=== PATIENT | female | born 1980 | race African-American/Black ===

== ENCOUNTER 2018-02-13 11:23 | Inpatient (IN) ==
[2018-02-13] MEDS ORDERED: ONDANSETRON 4 MG/2 ML VIAL IV PRN (12:12)
[2018-02-13] MEDS ORDERED: MAGNESIUM SULF RIDER 4 GM in PREMIX 1 EACH IV PRN (12:12)
[2018-02-13] MEDS ORDERED: DEXTROSE 5% NACL 0.45% 1,000 ML IV SCH (12:30)
[2018-02-13] MEDS ORDERED: ALBUTEROL 2.5 MG/3 ML NEB RESP TX PRN (14:06)
[2018-02-13] MEDS: PANTOPRAZOLE 40 MG VIAL IV SCH (14:33)
[2018-02-13 14:48] LABS: Basophils # 0.1 10*3/uL (0.0-0.2); Basophils % 0.3 % (0.0-0.8); Eosinophils # 0.1 10*3/uL (0.0-0.87); Eosinophils % 0.6 % (0.00-10.9); Hematocrit 22.5 VOL% (35.7-47.0); Hemoglobin 7.4 GM/DL (12.0-16.0); Immature Granulocytes % 5.9 %; Immature Granulocytes Absolute 0.86 #; Lymphocytes # 1.4 10*3/uL (1.4-4.0); Lymphocytes % 9.6 % (21.3-54.2); Mean Corpuscular HGB Conc 32.9 GM/DL (32-36); Mean Corpuscular Hemoglobin 34 PG (27-34); Mean Corpuscular Volume 103.2 FL (87-102); Mean Platelet Volume 10.4 FL (9.6-12.0); Monocytes # 1.4 10*3/uL (0.11-0.8); Monocytes % 9.5 % (1.7-12.7); Neutrophils # 10.7 10*3/uL (1.4-7.4); Neutrophils % 74.1 % (38.7-73.9); Platelet Count 113 T/CUMM (130-400); Red Blood Count 2.18 MC/CUMM (3.8-5.5); Red Cell Distribution Width 28.2 % (9.3-17.3); White Blood Count 14.5 T/CUMM (4-12)
[2018-02-13] MEDS: cefTRIAXone 2,000 MG in SYRINGE 1 EACH IV SCH (14:53)
[2018-02-13 15:03] LABS: Ammonia 54 UMOL/L (11-32)
[2018-02-13 15:04] LABS: INR 2.2
[2018-02-13 15:10] LABS: PT Patient Result 22.4 SECS
[2018-02-13 15:15] LABS: Alanine Aminotransferase 54 U/L (13-56); Albumin 1.8 G/DL (3.4-5.0); Alkaline Phosphatase 208 U/L (45-117); Aspartate Amino Transferase 148 U/L (0-37); Blood Urea Nitrogen 3 MG/DL (7-18); Calcium 6.4 MG/DL (8.5-10.1); Glucose 119 MG/DL (74-106); Lactic Acid 3.5 MMOL/L (0.4-2.0); Osmolality,Calculated 270.8 MOS/KG (273-304); Potassium 3.4 MMOL/L (3.5-5.1); Sodium 137 MMOL/L (136-145); Total Protein 7.9 G/DL (6.4-8.3)
[2018-02-13 15:29] LABS: Amorphous Crystals,Urine Occasional /HPF (Few); Apearance,Urine CLOUDY (Clear); Blood, Urine Large mg/dL (Negative); Glucose,Urine (UA) Negative (Negative); Ketones,Urine 5 mg/dL (Negative); Nitrite,Urine Negative (Negative); Protein,Urine 100 MG/DL; RBC,Urine 112 /HPF (0-4); Squamous Epithelial Cell,Urine Occasional /HPF (0-10); Urine Color Amber (Yellow); WBC,Urine 25 /HPF (0-6)
[2018-02-13 15:32] LABS: Bilirubin,Urine Moderate mg/dL (Negative)
[2018-02-13] MEDS ORDERED: OCTREOTIDE 100 MCG/ML SYRINGE IV SCH (16:30)
[2018-02-13 16:40] LABS: Anisocytosis 1+; Band Neutrophils 3 % (0-10); Lymphocytes 14 % (20-55); Segmented Neutrophils 80 % (50-85); Total Cells Counted 100
[2018-02-13 16:41] LABS: Polychromasia Few; Target Cells Few
[2018-02-13 16:42] LABS: Platelet Estimate Decreased
[2018-02-13] MEDS: ALBUMIN 25% 12.5 GM in PREMIX 1 EACH IV SCH (17:15)
[2018-02-13] MEDS: THIAMINE INJ 100 MG, FOLIC ACID INJ 1 MG, MAGNESIUM SULF INJ 2 GM, MULTIVITAMIN INJ 10 ... IV SCH (17:21)
[2018-02-13] MEDS: miSOPROStol 100 MCG TABLET PO SCH ×2 (17:28→21:17)
[2018-02-13] MEDS: SODIUM CHLORIDE 0.9% IV SCH (17:37)
[2018-02-13] MEDS: OCTREOTIDE IV SCH (17:37)
[2018-02-13] MEDS: POTASSIUM CHLORIDE RIDER 10 MEQ in PREMIX 1 EACH IV PRN ×2 (18:38→20:20)
[2018-02-13] MEDS: ASCORBIC ACID 500 MG TABLET PO SCH (21:17)
[2018-02-13] MEDS: LORazepam 2 MG/1 ML VIAL IV PRN (21:17)
[2018-02-13] MEDS: MIDODRINE 5 MG TABLET PO SCH (21:17)
[2018-02-13] MEDS: LACTULOSE 20 GM/30 ML UDCUP PO SCH (21:17)
[2018-02-14] MEDS: LORazepam 2 MG/1 ML VIAL IV PRN ×2 (01:22→09:42)
[2018-02-14] MEDS: ALBUMIN 25% 12.5 GM in PREMIX 1 EACH IV SCH ×4 (01:23→23:47)
[2018-02-14] MEDS: chlordiazePOXIDE 25 MG CAPSULE PO PRN ×2 (01:23→08:19)
[2018-02-14 06:06] LABS: Basophils # 0.1 10*3/uL (0.0-0.2); Basophils % 0.4 % (0.0-0.8); Eosinophils # 0.1 10*3/uL (0.0-0.87); Eosinophils % 0.8 % (0.00-10.9); Hematocrit 23.6 VOL% (35.7-47.0); Hemoglobin 7.9 GM/DL (12.0-16.0); Immature Granulocytes % 5.9 %; Immature Granulocytes Absolute 0.98 #; Lymphocytes # 1.8 10*3/uL (1.4-4.0); Lymphocytes % 10.6 % (21.3-54.2); Mean Corpuscular HGB Conc 33.5 GM/DL (32-36); Mean Corpuscular Hemoglobin 35 PG (27-34); Mean Platelet Volume 11.6 FL (9.6-12.0); Monocytes # 1.6 10*3/uL (0.11-0.8); Monocytes % 9.5 % (1.7-12.7); NRBC # 0.52 10*3/uL; Neutrophils % 72.8 % (38.7-73.9); Platelet Count 102 T/CUMM (130-400); Red Blood Count 2.27 MC/CUMM (3.8-5.5); Red Cell Distribution Width 28.5 % (9.3-17.3); White Blood Count 16.5 T/CUMM (4-12)
[2018-02-14 06:49] LABS: Bilirubin,Direct 8.6 MG/DL (0.0-0.20); Bilirubin,Indirect 1.8 MG/DL (0.0-1.0); Bilirubin,Total 10.4 MG/DL (0.2-1.0)
[2018-02-14 06:57] LABS: Albumin 2.1 G/DL (3.4-5.0); Calcium 6.3 MG/DL (8.5-10.1); Osmolality,Calculated 275.5 MOS/KG (273-304); Potassium 3.6 MMOL/L (3.5-5.1)
[2018-02-14 06:58] LABS: Bilirubin,Direct 8.42 MG/DL (0.0-0.20); Bilirubin,Indirect 1.7 MG/DL (0.0-1.0); Bilirubin,Total 10.1 MG/DL (0.2-1.0); Total Protein 8.1 G/DL (6.4-8.3)
[2018-02-14 06:59] LABS: Band Neutrophils 3 % (0-10); Eosinophils 1 % (0-10); Lymphocytes 12 % (20-55); Nucleated Red Blood Cells 5 (0-5); Segmented Neutrophils 79 % (50-85); Total Cells Counted 100
[2018-02-14 07:00] LABS: Hypochromasia 2+
[2018-02-14 07:01] LABS: Macrocytosis 1+; Polychromasia 1+
[2018-02-14 07:02] LABS: Anisocytosis 1+; Target Cells 1+
[2018-02-14 07:03] LABS: Platelet Estimate Decreased
[2018-02-14] MEDS ORDERED: FOLIC ACID 1 MG TABLET PO SCH (09:00)
[2018-02-14] MEDS ORDERED: THIAMINE 200 MG/2 ML VIAL IV SCH (09:00)
[2018-02-14] MEDS: miSOPROStol 100 MCG TABLET PO SCH ×4 (09:27→20:48)
[2018-02-14 09:55] LABS: Folate 6.4 NG/ML (5.4-24.0); Hepatitis A Ab IgM Quant 0.12 Index; Hepatitis A Ab IgM Result Negative (Negative); Hepatitis B Core IgM Quant 0.09 Index; Hepatitis B Core IgM Result Negative (Negative); Hepatitis B Surface Ag Result Negative (Negative); Hepatitis C Virus Ab Quant 0.07 Index; Hepatitis C Virus Ab Result Negative (Negative)
[2018-02-14 09:56] LABS: Hepatitis B Surface Ag Quant < 0.10 Index
[2018-02-14] MEDS ORDERED: LORazepam 2 MG/1 ML VIAL IV ONE (09:57)
[2018-02-14] MEDS ORDERED: LORazepam 2 MG/1 ML VIAL IV PRN (09:58)
[2018-02-14] MEDS: ASCORBIC ACID 500 MG TABLET PO SCH ×2 (11:32→20:49)
[2018-02-14] MEDS: LACTULOSE 20 GM/30 ML UDCUP PO SCH ×3 (11:32→20:48)
[2018-02-14] MEDS: MIDODRINE 5 MG TABLET PO SCH ×3 (11:33→20:49)
[2018-02-14] MEDS ORDERED: GLUCAGON 1 MG VIAL IM PRN (12:33)
[2018-02-14] MEDS ORDERED: DEXTROSE 50% 25 GM/50 ML VIAL IV PRN (12:33)
[2018-02-14] MEDS: chlordiazePOXIDE 25 MG CAPSULE PO SCH ×3 (14:50→23:37)
[2018-02-14] MEDS: PANTOPRAZOLE 40 MG VIAL IV SCH (14:51)
[2018-02-14] MEDS: cefTRIAXone 2,000 MG in SYRINGE 1 EACH IV SCH (14:53)
[2018-02-14] MEDS: THIAMINE INJ 100 MG, FOLIC ACID INJ 1 MG, MAGNESIUM SULF INJ 2 GM, MULTIVITAMIN INJ 10 ... IV SCH (17:28)
[2018-02-14] MEDS: INSULIN LISPRO 100 UNIT/ML SUBCUT SCH ×2 (18:52→23:47)
[2018-02-14] MEDS: SODIUM CHLORIDE 0.9% IV SCH (18:59)
[2018-02-14] MEDS: OCTREOTIDE IV SCH (18:59)
[2018-02-15 01:18] LABS: Basophils % 0.2 % (0.0-0.8); Eosinophils # 0.1 10*3/uL (0.0-0.87); Eosinophils % 0.5 % (0.00-10.9); Hematocrit 21.4 VOL% (35.7-47.0); Hemoglobin 6.9 GM/DL (12.0-16.0); Immature Granulocytes % 5.5 %; Immature Granulocytes Absolute 1.04 #; Lymphocytes # 1.5 10*3/uL (1.4-4.0); Lymphocytes % 8.2 % (21.3-54.2); Mean Corpuscular HGB Conc 32.2 GM/DL (32-36); Mean Corpuscular Hemoglobin 35 PG (27-34); Mean Corpuscular Volume 109.7 FL (87-102); Mean Platelet Volume 11.2 FL (9.6-12.0); Monocytes # 1.9 10*3/uL (0.11-0.8); NRBC # 0.62 10*3/uL; Neutrophils # 14.2 10*3/uL (1.4-7.4); Neutrophils % 75.6 % (38.7-73.9); Platelet Count 106 T/CUMM (130-400); Red Blood Count 1.95 MC/CUMM (3.8-5.5); Red Cell Distribution Width 28.8 % (9.3-17.3); White Blood Count 18.8 T/CUMM (4-12)
[2018-02-15 01:19] LABS: ABG Base Excess -6.7 MMOL/L (-2.5-2.5); ABG HCO3 18.8 MMOL/L (20-26); ABG PCO2 56.9 MM HG (35-48); ABG PO2 76.4 MM HG (80-95); ABG TCO2 20.9 MMOL/L (23-27)
[2018-02-15 01:25] LABS: ABG PH 7.186 (7.35-7.45)
[2018-02-15] MEDS ORDERED: SODIUM CHLORIDE 0.9% 1,000 ML IV PRN (01:42)
[2018-02-15 01:48] LABS: Osmolality,Calculated 281.4 MOS/KG (273-304); Potassium 3.7 MMOL/L (3.5-5.1)
[2018-02-15] MEDS ORDERED: SUCCINYLCHOLINE 200 MG/10 ML VIAL IV ONE (01:50)
[2018-02-15] MEDS ORDERED: ETOMIDATE 20 MG/10 ML VIAL IV ONE ×3 (01:50→02:27)
[2018-02-15 01:51] LABS: Calcium 5.7 MG/DL (8.5-10.1)
[2018-02-15] MEDS ORDERED: SUCCINYLCHOLINE 200 MG/10 ML VIAL ONE ×2 (01:51→02:27)
[2018-02-15] MEDS ORDERED: SODIUM BICARBONATE 50 MEQ/50 ML SYRINGE IV ONE (02:00)
[2018-02-15 02:06] LABS: Albumin 2.3 G/DL (3.4-5.0); Bilirubin,Direct 8.27 MG/DL (0.0-0.20); Bilirubin,Indirect 1.4 MG/DL (0.0-1.0); Bilirubin,Total 9.7 MG/DL (0.2-1.0); Total Protein 7.8 G/DL (6.4-8.3)
[2018-02-15] MEDS ORDERED: PROPOFOL 1,000 MG/100 ML BOTTLE IV ONE (02:13)
[2018-02-15] MEDS ORDERED: ALBUTEROL/IPRATROPIUM 3 ML NEB RESP TX ONE (02:30)
[2018-02-15] MEDS ORDERED: ALBUTEROL/IPRATROPIUM 3 ML NEB RESP TX SCH ×2 (02:35→03:30)
[2018-02-15] MEDS ORDERED: methylPREDNISolone SOD SUC 125 MG/2 ML VIAL ONE (02:41)
[2018-02-15] MEDS: ALBUTEROL/IPRATROPIUM 3 ML NEB RESP TX SCH ×6 (02:50→23:56)
[2018-02-15] MEDS ORDERED: methylPREDNISolone SOD SUC 125 MG/2 ML VIAL IV ONE (03:00)
[2018-02-15] MEDS: PROPOFOL 1,000 MG/100 ML BOTTLE IV SCH ×6 (03:26→23:35)
[2018-02-15] MEDS ORDERED: PROPOFOL 1,000 MG/100 ML BOTTLE IV SCH (03:30)
[2018-02-15] MEDS ORDERED: CALCIUM GLUCONATE 1,000 MG in SODIUM CHLORIDE 0.9% 100 ML IV ONE (03:30)
[2018-02-15 03:32] LABS: Band Neutrophils 8 % (0-10); Lymphocytes 9 % (20-55); Metamyelocytes 2 %; Myelocytes 2 %; Nucleated Red Blood Cells 2 (0-5); Segmented Neutrophils 73 % (50-85); Total Cells Counted 100
[2018-02-15 03:35] LABS: Hypochromasia 1+; Polychromasia 1+
[2018-02-15 03:36] LABS: Platelet Estimate Normal; Target Cells 1+
[2018-02-15 03:37] LABS: Anisocytosis 1+; Burr Cells Few; Macrocytosis 1+
[2018-02-15 03:40] LABS: ABG Base Excess -4.3 MMOL/L (-2.5-2.5); ABG HCO3 24.7 MMOL/L (20-26); ABG Oxygen Saturation 89.5 % (95-100); ABG PO2 72.2 MM HG (80-95); ABG TCO2 26.8 MMOL/L (23-27)
[2018-02-15 03:42] LABS: ABG PH 7.163 (7.35-7.45)
[2018-02-15 03:43] LABS: ABG PCO2 70.3 MM HG (35-48)
[2018-02-15] MEDS: CLINDAMYCIN INJ 900 MG in PREMIX 1 EACH IV SCH ×3 (03:57→19:22)
[2018-02-15] MEDS: SODIUM BICARB INJ 100 MEQ in SODIUM CHLORIDE 0.45% 1,000 ML IV SCH ×2 (03:57→17:31)
[2018-02-15] MEDS: MEROPENEM 500 MG in SYRINGE 1 EACH IV SCH ×2 (04:10→16:23)
[2018-02-15 04:46] LABS: ABG Base Excess -2.8 MMOL/L (-2.5-2.5); ABG HCO3 22.1 MMOL/L (20-26); ABG PCO2 33.8 MM HG (35-48); ABG TCO2 20.3 MMOL/L (23-27); Allen Test Positive; Pt O2 Delivery Device Ventilator
[2018-02-15 06:30] LABS: Potassium 3.6 MMOL/L (3.5-5.1)
[2018-02-15] MEDS: INSULIN LISPRO 100 UNIT/ML SUBCUT SCH ×3 (06:37→19:06)
[2018-02-15] MEDS: chlordiazePOXIDE 25 MG CAPSULE PO SCH ×3 (06:37→19:05)
[2018-02-15 07:14] LABS: Calcium 5.8 MG/DL (8.5-10.1)
[2018-02-15] MEDS: ASCORBIC ACID 500 MG TABLET PO SCH ×2 (10:02→21:32)
[2018-02-15] MEDS: miSOPROStol 200 MCG TABLET PO SCH ×4 (10:02→21:31)
[2018-02-15] MEDS: ALBUMIN 25% 12.5 GM in PREMIX 1 EACH IV SCH ×2 (10:03→19:05)
[2018-02-15] MEDS: LACTULOSE 20 GM/30 ML UDCUP PO SCH ×4 (10:03→21:31)
[2018-02-15] MEDS: MIDODRINE 2.5 MG TABLET PO SCH ×3 (10:03→21:32)
[2018-02-15] MEDS: prednisoLONE 15 MG/5 ML ORAL.SYR NG SCH (10:05)
[2018-02-15] MEDS ORDERED: CALCIUM CHLORIDE 1,000 MG in SODIUM CHLORIDE 0.9% 100 ML IV ONE (12:00)
[2018-02-15 12:22] LABS: Basophils # 0.1 10*3/uL (0.0-0.2); Basophils % 0.4 % (0.0-0.8); Eosinophils % 0.2 % (0.00-10.9); Hematocrit 25.9 VOL% (35.7-47.0); Hemoglobin 8.5 GM/DL (12.0-16.0); Immature Granulocytes % 5.8 %; Immature Granulocytes Absolute 1.04 #; Lymphocytes # 1.5 10*3/uL (1.4-4.0); Lymphocytes % 8.4 % (21.3-54.2); Mean Corpuscular HGB Conc 32.8 GM/DL (32-36); Mean Corpuscular Hemoglobin 34 PG (27-34); Mean Corpuscular Volume 103.6 FL (87-102); Mean Platelet Volume 12.1 FL (9.6-12.0); Monocytes # 1.5 10*3/uL (0.11-0.8); Monocytes % 8.2 % (1.7-12.7); Neutrophils # 13.8 10*3/uL (1.4-7.4); Platelet Count 118 T/CUMM (130-400); Red Cell Distribution Width 27.1 % (9.3-17.3); White Blood Count 17.9 T/CUMM (4-12)
[2018-02-15] MEDS: PANTOPRAZOLE 40 MG VIAL IV SCH ×2 (12:45→16:20)
[2018-02-15 14:25] LABS: Hypochromasia 2+; Lymphocytes 15 % (20-55); Nucleated Red Blood Cells 13 (0-5); Platelet Estimate Decreased; Segmented Neutrophils 78 % (50-85); Target Cells Slight; Total Cells Counted 100
[2018-02-15] MEDS: THIAMINE INJ 100 MG, FOLIC ACID INJ 1 MG, MAGNESIUM SULF INJ 2 GM, MULTIVITAMIN INJ 10 ... IV SCH (14:51)
[2018-02-15] MEDS: cefTRIAXone 2,000 MG in SYRINGE 1 EACH IV SCH (16:23)
[2018-02-15] MEDS: SODIUM CHLORIDE 0.9% IV SCH (21:31)
[2018-02-15] MEDS: OCTREOTIDE IV SCH (21:31)
[2018-02-16] MEDS: INSULIN LISPRO 100 UNIT/ML SUBCUT SCH ×4 (00:30→18:57)
[2018-02-16] MEDS: ALBUMIN 25% 12.5 GM in PREMIX 1 EACH IV SCH ×2 (00:30→08:39)
[2018-02-16] MEDS: chlordiazePOXIDE 25 MG CAPSULE PO SCH ×5 (00:46→18:54)
[2018-02-16] MEDS: ALBUTEROL/IPRATROPIUM 3 ML NEB RESP TX SCH ×6 (03:20→23:49)
[2018-02-16 03:30] LABS: ABG Base Excess -2.4 MMOL/L (-2.5-2.5); ABG Oxygen Saturation 99.3 % (95-100); ABG PH 7.505 (7.35-7.45); ABG PO2 229.5 MM HG (80-95); ABG TCO2 20.8 MMOL/L (23-27)
[2018-02-16] MEDS: CLINDAMYCIN INJ 900 MG in PREMIX 1 EACH IV SCH ×3 (03:41→18:58)
[2018-02-16] MEDS: MEROPENEM 500 MG in SYRINGE 1 EACH IV SCH ×2 (03:42→15:24)
[2018-02-16] MEDS: PROPOFOL 1,000 MG/100 ML BOTTLE IV SCH ×3 (03:47→16:27)
[2018-02-16 03:53] LABS: Basophils # 0.1 10*3/uL (0.0-0.2); Basophils % 0.4 % (0.0-0.8); Eosinophils % 0.1 % (0.00-10.9); Hemoglobin 7.5 GM/DL (12.0-16.0); Immature Granulocytes % 8.1 %; Immature Granulocytes Absolute 1.33 #; Lymphocytes # 1.4 10*3/uL (1.4-4.0); Lymphocytes % 8.3 % (21.3-54.2); Mean Corpuscular HGB Conc 32.6 GM/DL (32-36); Mean Corpuscular Hemoglobin 34 PG (27-34); Mean Corpuscular Volume 103.6 FL (87-102); Mean Platelet Volume 11.6 FL (9.6-12.0); Monocytes # 1.8 10*3/uL (0.11-0.8); Monocytes % 10.9 % (1.7-12.7); NRBC # 0.56 10*3/uL; Neutrophils # 11.8 10*3/uL (1.4-7.4); Neutrophils % 72.2 % (38.7-73.9); Platelet Count 117 T/CUMM (130-400); Red Blood Count 2.22 MC/CUMM (3.8-5.5); White Blood Count 16.4 T/CUMM (4-12)
[2018-02-16 04:41] LABS: Albumin 2.4 G/DL (3.4-5.0); Bilirubin,Direct 6.05 MG/DL (0.0-0.20); Bilirubin,Indirect 0.7 MG/DL (0.0-1.0); Bilirubin,Total 6.7 MG/DL (0.2-1.0); Total Protein 7.3 G/DL (6.4-8.3)
[2018-02-16 04:50] LABS: Calcium 6.4 MG/DL (8.5-10.1); Osmolality,Calculated 294.6 MOS/KG (273-304); Potassium 2.8 MMOL/L (3.5-5.1)
[2018-02-16] MEDS: POTASSIUM CHLORIDE RIDER 20 MEQ in PREMIX 1 EACH IV PRN ×2 (06:21→08:41)
[2018-02-16 07:16] LABS: Band Neutrophils 20 % (0-10); Lymphocytes 7 % (20-55); Metamyelocytes 3 %; Myelocytes 1 %; Nucleated Red Blood Cells 3 (0-5); Segmented Neutrophils 66 % (50-85); Total Cells Counted 100
[2018-02-16 07:17] LABS: Anisocytosis 2+; Macrocytosis 2+; Poikilocytosis 2+
[2018-02-16 07:18] LABS: Polychromasia Slight; Target Cells 2+
[2018-02-16] MEDS: prednisoLONE 15 MG/5 ML ORAL.SYR NG SCH (08:34)
[2018-02-16] MEDS: LACTULOSE 20 GM/30 ML UDCUP PO SCH ×4 (08:34→21:35)
[2018-02-16] MEDS: ASCORBIC ACID 500 MG TABLET PO SCH ×2 (08:35→21:36)
[2018-02-16] MEDS: MIDODRINE 2.5 MG TABLET PO SCH ×3 (08:36→21:35)
[2018-02-16] MEDS: miSOPROStol 200 MCG TABLET PO SCH ×4 (08:36→21:46)
[2018-02-16] MEDS: POTASSIUM CHLORIDE 20 MEQ/15 ML UDCUP PO SCH ×3 (11:36→21:35)
[2018-02-16] MEDS: SODIUM CHLORIDE 23.4% CONC INJ 38.5 MEQ in STERILE WATER INJ 1,000 ML IV SCH ×2 (11:40→21:35)
[2018-02-16] MEDS: POTASSIUM CHLORIDE RIDER 10 MEQ in PREMIX 1 EACH IV PRN (11:40)
[2018-02-16] MEDS ORDERED: SODIUM CHLORIDE 0.9% 1,000 ML IV PRN (12:10)
[2018-02-16] MEDS: PANTOPRAZOLE 40 MG VIAL IV SCH (15:25)
[2018-02-16] MEDS: cefTRIAXone 2,000 MG in SYRINGE 1 EACH IV SCH (16:13)
[2018-02-17] MEDS: OCTREOTIDE IV SCH ×3 (00:17→17:50)
[2018-02-17] MEDS: SODIUM CHLORIDE 0.9% IV SCH ×3 (00:17→17:50)
[2018-02-17] MEDS: chlordiazePOXIDE 25 MG CAPSULE PO SCH ×4 (00:18→17:35)
[2018-02-17] MEDS: INSULIN LISPRO 100 UNIT/ML SUBCUT SCH ×4 (00:20→18:38)
[2018-02-17 03:07] LABS: ABG Base Excess -2.5 MMOL/L (-2.5-2.5); ABG HCO3 22.3 MMOL/L (20-26); ABG Oxygen Saturation 99.6 % (95-100); ABG PCO2 30.5 MM HG (35-48); ABG PH 7.443 (7.35-7.45); ABG TCO2 19.1 MMOL/L (23-27); Allen Test Positive; Pt O2 Delivery Device Ventilator
[2018-02-17] MEDS: ALBUTEROL/IPRATROPIUM 3 ML NEB RESP TX SCH ×5 (03:50→19:25)
[2018-02-17] MEDS: MEROPENEM 500 MG in SYRINGE 1 EACH IV SCH (04:04)
[2018-02-17] MEDS: CLINDAMYCIN INJ 900 MG in PREMIX 1 EACH IV SCH (04:04)
[2018-02-17 04:47] LABS: Basophils # 0.1 10*3/uL (0.0-0.2); Basophils % 0.3 % (0.0-0.8); Eosinophils % 0.1 % (0.00-10.9); Hematocrit 26.3 VOL% (35.7-47.0); Hemoglobin 9.2 GM/DL (12.0-16.0); Immature Granulocytes % 10.7 %; Immature Granulocytes Absolute 1.96 #; Lymphocytes # 1.5 10*3/uL (1.4-4.0); Lymphocytes % 7.9 % (21.3-54.2); Mean Corpuscular Hemoglobin 34 PG (27-34); Mean Corpuscular Volume 97.4 FL (87-102); Mean Platelet Volume 11.8 FL (9.6-12.0); NRBC # 0.69 10*3/uL; Neutrophils # 12.8 10*3/uL (1.4-7.4); Platelet Count 100 T/CUMM (130-400); Red Cell Distribution Width 26.2 % (9.3-17.3); White Blood Count 18.3 T/CUMM (4-12)
[2018-02-17 05:21] LABS: Band Neutrophils 11 % (0-10); Hypochromasia 1+; Lymphocytes 8 % (20-55); Macrocytosis 1+; Nucleated Red Blood Cells 3 (0-5); Segmented Neutrophils 71 % (50-85); Total Cells Counted 100
[2018-02-17 05:22] LABS: Target Cells Few
[2018-02-17 05:24] LABS: Albumin 2.4 G/DL (3.4-5.0); Bilirubin,Direct 5.52 MG/DL (0.0-0.20); Bilirubin,Indirect 0.4 MG/DL (0.0-1.0); Bilirubin,Total 5.9 MG/DL (0.2-1.0); Prealbumin 10.3 MG/DL (20-40); Total Protein 7.1 G/DL (6.4-8.3)
[2018-02-17 05:34] LABS: Calcium 6.3 MG/DL (8.5-10.1); Osmolality,Calculated 294.4 MOS/KG (273-304)
[2018-02-17] MEDS: POTASSIUM CHLORIDE RIDER 20 MEQ in PREMIX 1 EACH IV PRN (06:13)
[2018-02-17] MEDS: SODIUM CHLORIDE 23.4% CONC INJ 38.5 MEQ in STERILE WATER INJ 1,000 ML IV SCH ×5 (06:14→22:28)
[2018-02-17] MEDS: PROPOFOL 1,000 MG/100 ML BOTTLE IV SCH ×3 (06:14→22:33)
[2018-02-17] MEDS: POTASSIUM CHLORIDE RIDER 10 MEQ in PREMIX 1 EACH IV PRN (07:55)
[2018-02-17] MEDS: ASCORBIC ACID 500 MG TABLET PO SCH ×2 (08:00→21:35)
[2018-02-17] MEDS: MIDODRINE 2.5 MG TABLET PO SCH ×3 (08:00→21:35)
[2018-02-17] MEDS: LACTULOSE 20 GM/30 ML UDCUP PO SCH ×5 (08:00→21:34)
[2018-02-17] MEDS: prednisoLONE 15 MG/5 ML ORAL.SYR NG SCH (08:01)
[2018-02-17] MEDS: miSOPROStol 200 MCG TABLET PO SCH (08:07)
[2018-02-17] MEDS: ACETAMINOPHEN 500 MG TABLET PO PRN (14:23)
[2018-02-17] MEDS ORDERED: VANCOMYCIN INJ 2,000 MG in SODIUM CHLORIDE 0.9% 500 ML IV PRN (14:25)
[2018-02-17] MEDS ORDERED: VANCOMYCIN INJ 2,000 MG in SODIUM CHLORIDE 0.9% 500 ML IV ONE (15:00)
[2018-02-17] MEDS: PANTOPRAZOLE 40 MG VIAL IV SCH (15:04)
[2018-02-17] MEDS: RIFAXIMIN 550 MG TABLET NG SCH (21:35)
[2018-02-18] MEDS: ALBUTEROL/IPRATROPIUM 3 ML NEB RESP TX SCH ×6 (00:19→19:08)
[2018-02-18] MEDS: INSULIN LISPRO 100 UNIT/ML SUBCUT SCH ×4 (00:23→17:43)
[2018-02-18] MEDS: chlordiazePOXIDE 25 MG CAPSULE PO SCH ×4 (01:46→17:57)
[2018-02-18] MEDS: PROPOFOL 1,000 MG/100 ML BOTTLE IV SCH ×4 (02:30→19:00)
[2018-02-18] MEDS: SODIUM CHLORIDE 23.4% CONC INJ 38.5 MEQ in STERILE WATER INJ 1,000 ML IV SCH ×3 (04:00→18:41)
[2018-02-18 04:41] LABS: Allen Test Positive; Pt O2 Delivery Device Ventilator
[2018-02-18 04:42] LABS: ABG Base Excess -6.2 MMOL/L (-2.5-2.5); ABG HCO3 18.5 MMOL/L (20-26); ABG Oxygen Saturation 98.8 % (95-100); ABG PCO2 33.5 MM HG (35-48); ABG PO2 174.3 MM HG (80-95); ABG TCO2 19.5 MMOL/L (23-27)
[2018-02-18 06:15] LABS: Basophils # 0.1 10*3/uL (0.0-0.2); Basophils % 0.3 % (0.0-0.8); Eosinophils % 0.2 % (0.00-10.9); Hemoglobin 8.4 GM/DL (12.0-16.0); Immature Granulocytes % 6.5 %; Immature Granulocytes Absolute 1.23 #; Lymphocytes # 1.7 10*3/uL (1.4-4.0); Lymphocytes % 8.8 % (21.3-54.2); Mean Corpuscular HGB Conc 33.6 GM/DL (32-36); Mean Corpuscular Hemoglobin 34 PG (27-34); Mean Platelet Volume 11.1 FL (9.6-12.0); Monocytes # 1.8 10*3/uL (0.11-0.8); Monocytes % 9.4 % (1.7-12.7); NRBC # 0.39 10*3/uL; Neutrophils # 14.1 10*3/uL (1.4-7.4); Neutrophils % 74.8 % (38.7-73.9); Platelet Count 119 T/CUMM (130-400); Red Cell Distribution Width 27.2 % (9.3-17.3); White Blood Count 18.8 T/CUMM (4-12)
[2018-02-18 06:32] LABS: Albumin 2.2 G/DL (3.4-5.0); Bilirubin,Total 5.6 MG/DL (0.2-1.0); Calcium 6.4 MG/DL (8.5-10.1); Osmolality,Calculated 289.7 MOS/KG (273-304); Potassium 2.7 MMOL/L (3.5-5.1); Total Protein 6.9 G/DL (6.4-8.3)
[2018-02-18 06:42] LABS: Band Neutrophils 13 % (0-10); Hypochromasia 1+; Lymphocytes 13 % (20-55); Metamyelocytes 1 %; Myelocytes 1 %; Nucleated Red Blood Cells 1 (0-5); Segmented Neutrophils 67 % (50-85); Total Cells Counted 100
[2018-02-18 06:43] LABS: Macrocytosis 1+; Platelet Estimate Adequate; Polychromasia Slight
[2018-02-18] MEDS: POTASSIUM CHLORIDE RIDER 20 MEQ in PREMIX 1 EACH IV PRN ×2 (06:52→07:59)
[2018-02-18] MEDS: RIFAXIMIN 550 MG TABLET NG SCH ×2 (08:01→21:01)
[2018-02-18] MEDS: LACTULOSE 20 GM/30 ML UDCUP PO SCH ×4 (08:01→21:00)
[2018-02-18] MEDS: ASCORBIC ACID 500 MG TABLET PO SCH ×2 (08:01→21:01)
[2018-02-18] MEDS: MIDODRINE 2.5 MG TABLET PO SCH ×3 (08:02→21:01)
[2018-02-18] MEDS: prednisoLONE 15 MG/5 ML ORAL.SYR NG SCH (08:02)
[2018-02-18] MEDS: MULTIVITAMIN LIQUID (CENTRUM) 60 ML BOTTLE NG SCH (08:02)
[2018-02-18] MEDS: POTASSIUM CHLORIDE RIDER 10 MEQ in PREMIX 1 EACH IV PRN (09:03)
[2018-02-18] MEDS: POTASSIUM CHLORIDE 20 MEQ/15 ML UDCUP PER TUBE SCH ×2 (11:44→15:29)
[2018-02-18] MEDS: POTASSIUM CHLORIDE 20 MEQ/15 ML UDCUP NG SCH ×3 (13:04→21:01)
[2018-02-18] MEDS: PANTOPRAZOLE 40 MG VIAL IV SCH (15:29)
[2018-02-18] MEDS: SODIUM CHLORIDE 0.9% IV SCH ×2 (17:09→19:00)
[2018-02-18] MEDS: OCTREOTIDE IV SCH ×2 (17:09→19:00)
[2018-02-19] MEDS: ALBUTEROL/IPRATROPIUM 3 ML NEB RESP TX SCH ×6 (00:11→20:03)
[2018-02-19] MEDS: SODIUM CHLORIDE 23.4% CONC INJ 38.5 MEQ in STERILE WATER INJ 1,000 ML IV SCH ×5 (00:30→23:30)
[2018-02-19] MEDS: INSULIN LISPRO 100 UNIT/ML SUBCUT SCH ×4 (00:30→18:57)
[2018-02-19] MEDS: chlordiazePOXIDE 25 MG CAPSULE PO SCH ×2 (00:30→06:18)
[2018-02-19] MEDS: PROPOFOL 1,000 MG/100 ML BOTTLE IV SCH ×4 (01:30→23:00)
[2018-02-19 04:13] LABS: ABG Base Excess -9.5 MMOL/L (-2.5-2.5); ABG HCO3 16.8 MMOL/L (20-26); ABG Oxygen Saturation 99.3 % (95-100); ABG PH 7.289 (7.35-7.45); ABG TCO2 15.3 MMOL/L (23-27); Allen Test Positive; Pt O2 Delivery Device Ventilator
[2018-02-19 06:08] LABS: Calcium 6.4 MG/DL (8.5-10.1); Osmolality,Calculated 287.8 MOS/KG (273-304); Potassium 3.4 MMOL/L (3.5-5.1)
[2018-02-19] MEDS: POTASSIUM CHLORIDE RIDER 20 MEQ in PREMIX 1 EACH IV PRN (06:37)
[2018-02-19] MEDS: POTASSIUM CHLORIDE RIDER 10 MEQ in PREMIX 1 EACH IV PRN (08:30)
[2018-02-19] MEDS: LACTULOSE 20 GM/30 ML UDCUP PO SCH ×4 (08:37→21:13)
[2018-02-19] MEDS: POTASSIUM CHLORIDE 20 MEQ/15 ML UDCUP NG SCH ×5 (08:38→21:13)
[2018-02-19] MEDS: MIDODRINE 2.5 MG TABLET PO SCH ×3 (08:38→21:13)
[2018-02-19] MEDS: ASCORBIC ACID 500 MG TABLET PO SCH ×2 (08:38→21:13)
[2018-02-19] MEDS: RIFAXIMIN 550 MG TABLET NG SCH ×2 (08:38→21:13)
[2018-02-19] MEDS: prednisoLONE 15 MG/5 ML ORAL.SYR NG SCH (08:39)
[2018-02-19] MEDS: MULTIVITAMIN LIQUID (CENTRUM) 60 ML BOTTLE NG SCH (08:42)
[2018-02-19] MEDS ORDERED: VANCOMYCIN INJ 2,000 MG in SODIUM CHLORIDE 0.9% 500 ML IV ONE (09:00)
[2018-02-19] MEDS: PANTOPRAZOLE 40 MG VIAL IV SCH (15:38)
[2018-02-19] MEDS: OCTREOTIDE IV SCH (20:00)
[2018-02-19] MEDS: SODIUM CHLORIDE 0.9% IV SCH (20:00)
[2018-02-20] MEDS: ALBUTEROL/IPRATROPIUM 3 ML NEB RESP TX SCH ×7 (00:05→23:47)
[2018-02-20] MEDS: INSULIN LISPRO 100 UNIT/ML SUBCUT SCH ×4 (00:07→17:59)
[2018-02-20 03:07] LABS: ABG Base Excess -12.9 MMOL/L (-2.5-2.5); ABG HCO3 14.3 MMOL/L (20-26); ABG PCO2 31.2 MM HG (35-48); ABG PH 7.244 (7.35-7.45); ABG TCO2 12.9 MMOL/L (23-27); Allen Test Positive; Pt O2 Delivery Device Ventilator
[2018-02-20] MEDS: PROPOFOL 1,000 MG/100 ML BOTTLE IV SCH ×4 (05:00→22:19)
[2018-02-20 05:18] LABS: Basophils % 0.2 % (0.0-0.8); Eosinophils % 0.2 % (0.00-10.9); Hematocrit 23.7 VOL% (35.7-47.0); Hemoglobin 7.4 GM/DL (12.0-16.0); Immature Granulocytes % 5.3 %; Immature Granulocytes Absolute 1.27 #; Lymphocytes % 4.1 % (21.3-54.2); Mean Corpuscular HGB Conc 31.2 GM/DL (32-36); Mean Corpuscular Hemoglobin 35 PG (27-34); Mean Corpuscular Volume 110.7 FL (87-102); Mean Platelet Volume 11.8 FL (9.6-12.0); Monocytes % 8.3 % (1.7-12.7); NRBC # 0.19 10*3/uL; Neutrophils # 19.7 10*3/uL (1.4-7.4); Neutrophils % 81.9 % (38.7-73.9); Platelet Count 132 T/CUMM (130-400); Red Blood Count 2.14 MC/CUMM (3.8-5.5); Red Cell Distribution Width 26.6 % (9.3-17.3); White Blood Count 24.1 T/CUMM (4-12)
[2018-02-20 05:47] LABS: Band Neutrophils 25 % (0-10); Eosinophils 1 % (0-10); Lymphocytes 5 % (20-55); Metamyelocytes 1 %; Myelocytes 1 %; Polychromasia 1+; Segmented Neutrophils 60 % (50-85); Total Cells Counted 100
[2018-02-20 05:48] LABS: Anisocytosis 2+; Poikilocytosis 1+; Tear Drop Cells Slight
[2018-02-20 05:49] LABS: Acanthocytes 1+; Macrocytosis 1+
[2018-02-20 05:56] LABS: Albumin 2.2 G/DL (3.4-5.0); Bilirubin,Direct 5.58 MG/DL (0.0-0.20); Bilirubin,Indirect 0.5 MG/DL (0.0-1.0); Bilirubin,Total 6.1 MG/DL (0.2-1.0); Total Protein 6.7 G/DL (6.4-8.3)
[2018-02-20 06:13] LABS: Calcium 6.7 MG/DL (8.5-10.1); Osmolality,Calculated 289.1 MOS/KG (273-304); Potassium 3.9 MMOL/L (3.5-5.1)
[2018-02-20] MEDS: POTASSIUM CHLORIDE RIDER 20 MEQ in PREMIX 1 EACH IV PRN (06:26)
[2018-02-20] MEDS: SODIUM CHLORIDE 23.4% CONC INJ 38.5 MEQ in STERILE WATER INJ 1,000 ML IV SCH (06:32)
[2018-02-20 06:37] LABS: Prealbumin 15.9 MG/DL (20-40)
[2018-02-20] MEDS: MULTIVITAMIN LIQUID (CENTRUM) 60 ML BOTTLE NG SCH (09:00)
[2018-02-20] MEDS: prednisoLONE 15 MG/5 ML ORAL.SYR NG SCH (09:10)
[2018-02-20] MEDS: RIFAXIMIN 550 MG TABLET NG SCH ×2 (09:10→20:11)
[2018-02-20] MEDS: MIDODRINE 2.5 MG TABLET PO SCH ×3 (09:10→20:11)
[2018-02-20] MEDS: POTASSIUM CHLORIDE 20 MEQ/15 ML UDCUP NG SCH ×3 (09:10→20:10)
[2018-02-20] MEDS: ASCORBIC ACID 500 MG TABLET PO SCH ×2 (09:10→20:11)
[2018-02-20] MEDS: LACTULOSE 20 GM/30 ML UDCUP PO SCH ×4 (09:15→20:10)
[2018-02-20] MEDS: SODIUM CHLORIDE 23.4% CONC INJ 38.5 MEQ, SODIUM BICARB INJ 50 MEQ in STERILE WATER INJ ... IV SCH ×2 (12:00→16:00)
[2018-02-20] MEDS: PANTOPRAZOLE 40 MG VIAL IV SCH (16:32)
[2018-02-21] MEDS: INSULIN LISPRO 100 UNIT/ML SUBCUT SCH ×5 (01:02→23:47)
[2018-02-21] MEDS: SODIUM CHLORIDE 23.4% CONC INJ 38.5 MEQ, SODIUM BICARB INJ 50 MEQ in STERILE WATER INJ ... IV SCH ×2 (01:02→14:55)
[2018-02-21] MEDS: ALBUTEROL/IPRATROPIUM 3 ML NEB RESP TX SCH ×6 (03:32→23:14)
[2018-02-21 03:35] LABS: ABG Base Excess -14.1 MMOL/L (-2.5-2.5); ABG HCO3 13.4 MMOL/L (20-26); ABG Oxygen Saturation 99.1 % (95-100); ABG PCO2 32.8 MM HG (35-48); ABG TCO2 12.4 MMOL/L (23-27)
[2018-02-21] MEDS: PROPOFOL 1,000 MG/100 ML BOTTLE IV SCH ×4 (03:48→23:55)
[2018-02-21 04:02] LABS: Basophils % 0.1 % (0.0-0.8); Eosinophils # 0.1 10*3/uL (0.0-0.87); Eosinophils % 0.3 % (0.00-10.9); Hematocrit 23.3 VOL% (35.7-47.0); Hemoglobin 7.1 GM/DL (12.0-16.0); Immature Granulocytes % 7.9 %; Immature Granulocytes Absolute 1.97 #; Lymphocytes # 0.9 10*3/uL (1.4-4.0); Lymphocytes % 3.5 % (21.3-54.2); Mean Corpuscular HGB Conc 30.5 GM/DL (32-36); Mean Corpuscular Hemoglobin 34 PG (27-34); Mean Platelet Volume 11.7 FL (9.6-12.0); Monocytes # 1.6 10*3/uL (0.11-0.8); Monocytes % 6.4 % (1.7-12.7); NRBC # 0.23 10*3/uL; Neutrophils # 20.5 10*3/uL (1.4-7.4); Neutrophils % 81.8 % (38.7-73.9); Platelet Count 156 T/CUMM (130-400); Red Cell Distribution Width 26.2 % (9.3-17.3)
[2018-02-21 04:11] LABS: ABG PH 7.203 (7.35-7.45)
[2018-02-21] MEDS ORDERED: SODIUM BICARBONATE 50 MEQ/50 ML SYRINGE IV ONE ×2 (04:21→04:30)
[2018-02-21 04:32] LABS: Albumin 2.1 G/DL (3.4-5.0); Bilirubin,Direct 4.83 MG/DL (0.0-0.20); Bilirubin,Indirect 0.6 MG/DL (0.0-1.0); Bilirubin,Total 5.4 MG/DL (0.2-1.0); Calcium 6.7 MG/DL (8.5-10.1); Osmolality,Calculated 291.3 MOS/KG (273-304); Potassium 4.2 MMOL/L (3.5-5.1); Total Protein 6.8 G/DL (6.4-8.3)
[2018-02-21 05:46] LABS: Band Neutrophils 2 % (0-10); Lymphocytes 8 % (20-55); Platelet Estimate Normal; Segmented Neutrophils 90 % (50-85); Total Cells Counted 100
[2018-02-21] MEDS: SODIUM CHLORIDE 0.9% IV SCH (05:50)
[2018-02-21] MEDS: OCTREOTIDE IV SCH (05:50)
[2018-02-21] MEDS ORDERED: SODIUM BICARBONATE PEDIATRIC 5 MEQ/10 ML SYRINGE IV ONE (08:15)
[2018-02-21] MEDS: LACTULOSE 20 GM/30 ML UDCUP PO SCH ×4 (08:17→21:22)
[2018-02-21] MEDS: POTASSIUM CHLORIDE 20 MEQ/15 ML UDCUP NG SCH ×4 (08:18→21:22)
[2018-02-21] MEDS: prednisoLONE 15 MG/5 ML ORAL.SYR NG SCH (08:18)
[2018-02-21] MEDS: ASCORBIC ACID 500 MG TABLET PO SCH ×2 (08:18→21:21)
[2018-02-21] MEDS: MIDODRINE 2.5 MG TABLET PO SCH ×3 (08:18→21:21)
[2018-02-21] MEDS: RIFAXIMIN 550 MG TABLET NG SCH ×2 (08:18→21:20)
[2018-02-21] MEDS: MULTIVITAMIN LIQUID (CENTRUM) 60 ML BOTTLE NG SCH (08:31)
[2018-02-21] MEDS ORDERED: LORazepam 2 MG/1 ML VIAL IV PRN (12:00)
[2018-02-21] MEDS: SODIUM CHLORIDE 23.4% CONC INJ 38.5 MEQ, SODIUM BICARB INJ 100 MEQ in STERILE WATER INJ... IV SCH ×3 (14:29→23:45)
[2018-02-21] MEDS: PANTOPRAZOLE 40 MG VIAL IV SCH (15:24)
[2018-02-22] MEDS: ALBUTEROL/IPRATROPIUM 3 ML NEB RESP TX SCH ×5 (02:43→19:33)
[2018-02-22] MEDS: SODIUM CHLORIDE 23.4% CONC INJ 38.5 MEQ, SODIUM BICARB INJ 100 MEQ in STERILE WATER INJ... IV SCH ×3 (04:18→17:58)
[2018-02-22 05:02] LABS: ABG HCO3 17.1 MMOL/L (20-26); ABG Oxygen Saturation 98.2 % (95-100); ABG PCO2 43.8 MM HG (35-48); ABG PH 7.227 (7.35-7.45); ABG TCO2 17.1 MMOL/L (23-27); Allen Test Positive; Pt O2 Delivery Device Ventilator
[2018-02-22] MEDS: PROPOFOL 1,000 MG/100 ML BOTTLE IV SCH ×5 (05:02→20:59)
[2018-02-22] MEDS: INSULIN LISPRO 100 UNIT/ML SUBCUT SCH ×3 (05:48→17:58)
[2018-02-22 06:06] LABS: Hematocrit 26.8 VOL% (35.7-47.0); Hemoglobin 8.8 GM/DL (12.0-16.0)
[2018-02-22] MEDS: OCTREOTIDE IV SCH (08:18)
[2018-02-22] MEDS: SODIUM CHLORIDE 0.9% IV SCH (08:18)
[2018-02-22] MEDS: RIFAXIMIN 550 MG TABLET NG SCH ×2 (09:30→20:49)
[2018-02-22] MEDS: ASCORBIC ACID 500 MG TABLET PO SCH ×2 (09:30→20:49)
[2018-02-22] MEDS: prednisoLONE 15 MG/5 ML ORAL.SYR NG SCH (09:31)
[2018-02-22] MEDS: LACTULOSE 20 GM/30 ML UDCUP PO SCH ×4 (09:32→20:49)
[2018-02-22] MEDS: MIDODRINE 2.5 MG TABLET PO SCH ×3 (09:32→20:49)
[2018-02-22] MEDS: POTASSIUM CHLORIDE 20 MEQ/15 ML UDCUP NG SCH ×4 (09:33→20:49)
[2018-02-22] MEDS: MULTIVITAMIN LIQUID (CENTRUM) 60 ML BOTTLE NG SCH (09:45)
[2018-02-22] MEDS: PANTOPRAZOLE 40 MG VIAL IV SCH (15:14)
[2018-02-23] MEDS: ALBUTEROL/IPRATROPIUM 3 ML NEB RESP TX SCH ×7 (00:13→23:49)
[2018-02-23] MEDS: INSULIN LISPRO 100 UNIT/ML SUBCUT SCH ×4 (00:32→18:42)
[2018-02-23] MEDS: SODIUM CHLORIDE 23.4% CONC INJ 38.5 MEQ, SODIUM BICARB INJ 100 MEQ in STERILE WATER INJ... IV SCH ×4 (00:42→23:31)
[2018-02-23] MEDS: PROPOFOL 1,000 MG/100 ML BOTTLE IV SCH ×5 (01:06→22:21)
[2018-02-23 04:49] LABS: ABG Base Excess -4.4 MMOL/L (-2.5-2.5); ABG HCO3 20.7 MMOL/L (20-26); ABG Oxygen Saturation 98.2 % (95-100); ABG PCO2 49.8 MM HG (35-48); ABG PH 7.259 (7.35-7.45)
[2018-02-23 05:12] LABS: Basophils # 0.1 10*3/uL (0.0-0.2); Basophils % 0.2 % (0.0-0.8); Eosinophils % 0.1 % (0.00-10.9); Hematocrit 26.2 VOL% (35.7-47.0); Hemoglobin 8.4 GM/DL (12.0-16.0); Immature Granulocytes % 7.7 %; Immature Granulocytes Absolute 1.74 #; Lymphocytes # 0.8 10*3/uL (1.4-4.0); Lymphocytes % 3.5 % (21.3-54.2); Mean Corpuscular HGB Conc 32.1 GM/DL (32-36); Mean Corpuscular Hemoglobin 34 PG (27-34); Mean Corpuscular Volume 106.9 FL (87-102); Mean Platelet Volume 11.3 FL (9.6-12.0); Monocytes # 1.6 10*3/uL (0.11-0.8); Monocytes % 7.1 % (1.7-12.7); NRBC # 0.35 10*3/uL; Neutrophils # 18.4 10*3/uL (1.4-7.4); Neutrophils % 81.4 % (38.7-73.9); Platelet Count 188 T/CUMM (130-400); Red Blood Count 2.45 MC/CUMM (3.8-5.5); Red Cell Distribution Width 24.5 % (9.3-17.3); White Blood Count 22.6 T/CUMM (4-12)
[2018-02-23 05:19] LABS: INR 1.3; PT Patient Result 13.6 SECS
[2018-02-23 05:52] LABS: Albumin 2.3 G/DL (3.4-5.0); Calcium 7.3 MG/DL (8.5-10.1); Osmolality,Calculated 304.7 MOS/KG (273-304); Total Protein 7.1 G/DL (6.4-8.3)
[2018-02-23 05:56] LABS: Band Neutrophils 8 % (0-10); Eosinophils 2 % (0-10); Hypochromasia 1+; Lymphocytes 4 % (20-55); Metamyelocytes 1 %; Myelocytes 1 %; Nucleated Red Blood Cells 1 (0-5); Ovalocytes Slight; Platelet Estimate Normal; Segmented Neutrophils 76 % (50-85); Total Cells Counted 100
[2018-02-23] MEDS: POTASSIUM CHLORIDE 20 MEQ/15 ML UDCUP NG SCH ×4 (08:42→21:49)
[2018-02-23] MEDS: RIFAXIMIN 550 MG TABLET NG SCH ×2 (08:42→21:48)
[2018-02-23] MEDS: SODIUM CHLORIDE 0.9% IV SCH (08:42)
[2018-02-23] MEDS: MIDODRINE 2.5 MG TABLET PO SCH ×3 (08:42→21:48)
[2018-02-23] MEDS: MULTIVITAMIN LIQUID (CENTRUM) 60 ML BOTTLE NG SCH (08:42)
[2018-02-23] MEDS: OCTREOTIDE IV SCH (08:42)
[2018-02-23] MEDS: ASCORBIC ACID 500 MG TABLET PO SCH ×2 (08:47→21:48)
[2018-02-23] MEDS: LACTULOSE 20 GM/30 ML UDCUP PO SCH ×4 (08:47→21:49)
[2018-02-23] MEDS: prednisoLONE 15 MG/5 ML ORAL.SYR NG SCH (08:50)
[2018-02-23] MEDS ORDERED: VANCOMYCIN INJ 2,000 MG in SODIUM CHLORIDE 0.9% 500 ML IV ONE (11:00)
[2018-02-23] MEDS: PANTOPRAZOLE 40 MG VIAL IV SCH (15:27)
[2018-02-24] MEDS: INSULIN LISPRO 100 UNIT/ML SUBCUT SCH ×5 (01:49→23:56)
[2018-02-24] MEDS: ALBUTEROL/IPRATROPIUM 3 ML NEB RESP TX SCH ×6 (02:28→23:16)
[2018-02-24] MEDS: PROPOFOL 1,000 MG/100 ML BOTTLE IV SCH ×4 (03:36→21:50)
[2018-02-24 04:26] LABS: ABG Base Excess -1.7 MMOL/L (-2.5-2.5); ABG Oxygen Saturation 98.7 % (95-100); ABG PCO2 46.4 MM HG (35-48); ABG PH 7.329 (7.35-7.45); ABG TCO2 22.4 MMOL/L (23-27); Allen Test Positive; Pt O2 Delivery Device Ventilator
[2018-02-24 05:20] LABS: Albumin 2.1 G/DL (3.4-5.0); Bilirubin,Direct 3.96 MG/DL (0.0-0.20); Bilirubin,Indirect 0.2 MG/DL (0.0-1.0); Bilirubin,Total 4.2 MG/DL (0.2-1.0)
[2018-02-24 07:14] LABS: Albumin 2.1 G/DL (3.4-5.0); Bilirubin,Total 4.4 MG/DL (0.2-1.0); Calcium 7.4 MG/DL (8.5-10.1); Osmolality,Calculated 310.3 MOS/KG (273-304); Potassium 4.2 MMOL/L (3.5-5.1); Total Protein 6.9 G/DL (6.4-8.3)
[2018-02-24] MEDS: SODIUM CHLORIDE 23.4% CONC INJ 38.5 MEQ, SODIUM BICARB INJ 100 MEQ in STERILE WATER INJ... IV SCH (07:23)
[2018-02-24 07:34] LABS: Prealbumin 21.9 MG/DL (20-40)
[2018-02-24] MEDS: MULTIVITAMIN LIQUID (CENTRUM) 60 ML BOTTLE NG SCH (10:00)
[2018-02-24] MEDS: LACTULOSE 20 GM/30 ML UDCUP PO SCH ×4 (10:00→20:21)
[2018-02-24] MEDS: SODIUM CHLORIDE 0.9% IV SCH (10:00)
[2018-02-24] MEDS: OCTREOTIDE IV SCH (10:00)
[2018-02-24] MEDS: POTASSIUM CHLORIDE 20 MEQ/15 ML UDCUP NG SCH ×4 (10:00→20:20)
[2018-02-24] MEDS: RIFAXIMIN 550 MG TABLET NG SCH ×2 (10:00→20:21)
[2018-02-24] MEDS: MIDODRINE 2.5 MG TABLET PO SCH ×3 (10:00→20:21)
[2018-02-24] MEDS: ASCORBIC ACID 500 MG TABLET PO SCH ×2 (10:00→20:20)
[2018-02-24] MEDS: prednisoLONE 15 MG/5 ML ORAL.SYR NG SCH (10:57)
[2018-02-24] MEDS: SODIUM BICARB INJ 50 MEQ in DEXTROSE 5% 950 ML IV SCH ×2 (11:00→20:33)
[2018-02-24] MEDS: PANTOPRAZOLE 40 MG VIAL IV SCH (15:40)
[2018-02-25] MEDS: ALBUTEROL/IPRATROPIUM 3 ML NEB RESP TX SCH ×6 (02:35→22:54)
[2018-02-25] MEDS: PROPOFOL 1,000 MG/100 ML BOTTLE IV SCH ×4 (02:39→17:10)
[2018-02-25 03:30] LABS: Allen Test Positive; Pt O2 Delivery Device Ventilator
[2018-02-25 03:31] LABS: ABG Base Excess 0.3 MMOL/L (-2.5-2.5); ABG HCO3 24.7 MMOL/L (20-26); ABG Oxygen Saturation 99.3 % (95-100); ABG PCO2 39.2 MM HG (35-48); ABG PH 7.411 (7.35-7.45)
[2018-02-25] MEDS: SODIUM BICARB INJ 50 MEQ in DEXTROSE 5% 950 ML IV SCH ×3 (05:40→23:16)
[2018-02-25] MEDS: INSULIN LISPRO 100 UNIT/ML SUBCUT SCH ×4 (06:57→23:19)
[2018-02-25] MEDS: SODIUM CHLORIDE 0.9% IV SCH (07:00)
[2018-02-25] MEDS: OCTREOTIDE IV SCH (07:00)
[2018-02-25] MEDS: prednisoLONE 15 MG/5 ML ORAL.SYR NG SCH (09:45)
[2018-02-25] MEDS: MULTIVITAMIN LIQUID (CENTRUM) 60 ML BOTTLE NG SCH (09:45)
[2018-02-25] MEDS: RIFAXIMIN 550 MG TABLET NG SCH ×2 (09:45→20:13)
[2018-02-25] MEDS: LACTULOSE 20 GM/30 ML UDCUP PO SCH ×4 (09:45→20:13)
[2018-02-25] MEDS: POTASSIUM CHLORIDE 20 MEQ/15 ML UDCUP NG SCH ×4 (09:45→20:13)
[2018-02-25] MEDS: ASCORBIC ACID 500 MG TABLET PO SCH ×2 (09:45→20:13)
[2018-02-25 10:24] LABS: Albumin 2.3 G/DL (3.4-5.0); Bilirubin,Total 4.2 MG/DL (0.2-1.0); Potassium 3.9 MMOL/L (3.5-5.1); Total Protein 6.7 G/DL (6.4-8.3)
[2018-02-25] MEDS: ACETAMINOPHEN 500 MG TABLET PO PRN (12:15)
[2018-02-25] MEDS: PANTOPRAZOLE 40 MG VIAL IV SCH (15:10)
[2018-02-26] MEDS: ALBUTEROL/IPRATROPIUM 3 ML NEB RESP TX SCH ×6 (02:35→23:21)
[2018-02-26 03:23] LABS: ABG Base Excess 1.9 MMOL/L (-2.5-2.5); ABG HCO3 26.1 MMOL/L (20-26); ABG Oxygen Saturation 99.4 % (95-100); ABG PCO2 40.7 MM HG (35-48); ABG PH 7.421 (7.35-7.45); ABG TCO2 24.6 MMOL/L (23-27); Allen Test Positive; Pt O2 Delivery Device Ventilator
[2018-02-26] MEDS: PROPOFOL 1,000 MG/100 ML BOTTLE IV SCH ×3 (03:35→17:26)
[2018-02-26 04:04] LABS: Basophils # 0.1 10*3/uL (0.0-0.2); Basophils % 0.3 % (0.0-0.8); Hematocrit 25.8 VOL% (35.7-47.0); Immature Granulocytes % 4.7 %; Immature Granulocytes Absolute 1.06 #; Lymphocytes # 1.2 10*3/uL (1.4-4.0); Lymphocytes % 5.3 % (21.3-54.2); Mean Corpuscular Hemoglobin 34 PG (27-34); Mean Corpuscular Volume 110.7 FL (87-102); Mean Platelet Volume 10.6 FL (9.6-12.0); Monocytes # 1.5 10*3/uL (0.11-0.8); Monocytes % 6.8 % (1.7-12.7); NRBC # 0.43 10*3/uL; Neutrophils # 18.5 10*3/uL (1.4-7.4); Neutrophils % 82.9 % (38.7-73.9); Platelet Count 108 T/CUMM (130-400); Red Blood Count 2.33 MC/CUMM (3.8-5.5); White Blood Count 22.4 T/CUMM (4-12)
[2018-02-26 04:31] LABS: Band Neutrophils 5 % (0-10); Eosinophils 2 % (0-10); Hypochromasia 1+; Lymphocytes 7 % (20-55); Macrocytosis Slight; Nucleated Red Blood Cells 2 (0-5); Platelet Estimate Decreased; Polychromasia Slight; Segmented Neutrophils 77 % (50-85); Total Cells Counted 100
[2018-02-26 04:44] LABS: Albumin 2.1 G/DL (3.4-5.0); Bilirubin,Total 3.9 MG/DL (0.2-1.0); Calcium 7.9 MG/DL (8.5-10.1); Osmolality,Calculated 307.3 MOS/KG (273-304); Potassium 4.3 MMOL/L (3.5-5.1)
[2018-02-26] MEDS: INSULIN LISPRO 100 UNIT/ML SUBCUT SCH ×4 (05:27→23:44)
[2018-02-26] MEDS: ASCORBIC ACID 500 MG TABLET PO SCH ×2 (09:38→20:38)
[2018-02-26] MEDS: LACTULOSE 20 GM/30 ML UDCUP PO SCH ×4 (09:38→20:38)
[2018-02-26] MEDS: RIFAXIMIN 550 MG TABLET NG SCH ×2 (09:38→20:38)
[2018-02-26] MEDS: prednisoLONE 15 MG/5 ML ORAL.SYR NG SCH (09:39)
[2018-02-26] MEDS: SODIUM BICARB INJ 50 MEQ in DEXTROSE 5% 950 ML IV SCH ×2 (09:40→15:37)
[2018-02-26] MEDS: MULTIVITAMIN LIQUID (CENTRUM) 60 ML BOTTLE NG SCH (09:58)
[2018-02-26] MEDS ORDERED: VANCOMYCIN INJ 2,000 MG in SODIUM CHLORIDE 0.9% 500 ML IV ONE (10:00)
[2018-02-26] MEDS: POTASSIUM CHLORIDE 20 MEQ/15 ML UDCUP NG SCH ×4 (10:25→20:38)
[2018-02-26] MEDS ORDERED: POTASSIUM CHLORIDE 20 MEQ/15 ML UDCUP PO ONE (11:00)
[2018-02-26] MEDS: PANTOPRAZOLE 40 MG VIAL IV SCH (14:44)
[2018-02-27] MEDS: SODIUM BICARB INJ 50 MEQ in DEXTROSE 5% 950 ML IV SCH ×5 (00:45→18:32)
[2018-02-27] MEDS: PROPOFOL 1,000 MG/100 ML BOTTLE IV SCH ×4 (00:46→17:01)
[2018-02-27] MEDS: ALBUTEROL/IPRATROPIUM 3 ML NEB RESP TX SCH ×6 (03:06→23:29)
[2018-02-27 03:53] LABS: Basophils # 0.1 10*3/uL (0.0-0.2); Basophils % 0.3 % (0.0-0.8); Eosinophils % 0.1 % (0.00-10.9); Hematocrit 25.9 VOL% (35.7-47.0); Hemoglobin 7.7 GM/DL (12.0-16.0); Immature Granulocytes % 5.7 %; Immature Granulocytes Absolute 1.19 #; Lymphocytes % 4.7 % (21.3-54.2); Mean Corpuscular HGB Conc 29.7 GM/DL (32-36); Mean Corpuscular Hemoglobin 34 PG (27-34); Mean Corpuscular Volume 112.6 FL (87-102); Mean Platelet Volume 12.3 FL (9.6-12.0); Monocytes # 0.9 10*3/uL (0.11-0.8); Monocytes % 4.3 % (1.7-12.7); NRBC # 0.28 10*3/uL; Neutrophils # 17.7 10*3/uL (1.4-7.4); Neutrophils % 84.9 % (38.7-73.9); Platelet Count 61 T/CUMM (130-400); Red Cell Distribution Width 23.8 % (9.3-17.3); White Blood Count 20.8 T/CUMM (4-12)
[2018-02-27 04:04] LABS: Calcium 7.9 MG/DL (8.5-10.1); Osmolality,Calculated 312.9 MOS/KG (273-304); Potassium 4.6 MMOL/L (3.5-5.1)
[2018-02-27] MEDS: MAGNESIUM SULF RIDER 2 GM in PREMIX 1 EACH IV PRN (04:28)
[2018-02-27 05:02] LABS: Band Neutrophils 6 % (0-10); Lymphocytes 3 % (20-55); Nucleated Red Blood Cells 3 (0-5); Segmented Neutrophils 88 % (50-85); Total Cells Counted 100
[2018-02-27 05:03] LABS: Macrocytosis 2+; Platelet Estimate Decreased; Polychromasia 1+
[2018-02-27 05:05] LABS: ABG Base Excess 2.7 MMOL/L (-2.5-2.5); ABG HCO3 26.9 MMOL/L (20-26); ABG Oxygen Saturation 99.1 % (95-100); ABG PCO2 47.9 MM HG (35-48); ABG PH 7.383 (7.35-7.45); ABG TCO2 25.3 MMOL/L (23-27); Allen Test Positive; Pt O2 Delivery Device Ventilator
[2018-02-27] MEDS: INSULIN LISPRO 100 UNIT/ML SUBCUT SCH ×3 (06:13→18:30)
[2018-02-27] MEDS ORDERED: MAGNESIUM SULF RIDER 2 GM in PREMIX 1 EACH IV ONE (07:54)
[2018-02-27 08:49] LABS: INR 1.3; PT Patient Result 13.4 SECS; Partial Thromboplastin Time 25.4 SECS (0-40)
[2018-02-27] MEDS: MULTIVITAMIN LIQUID (CENTRUM) 60 ML BOTTLE NG SCH (09:32)
[2018-02-27] MEDS: LACTULOSE 20 GM/30 ML UDCUP PO SCH ×2 (09:37→21:12)
[2018-02-27] MEDS: POTASSIUM CHLORIDE 20 MEQ/15 ML UDCUP NG SCH ×4 (09:38→21:12)
[2018-02-27] MEDS: prednisoLONE 15 MG/5 ML ORAL.SYR NG SCH (09:42)
[2018-02-27] MEDS: ASCORBIC ACID 500 MG TABLET PO SCH ×2 (09:43→21:12)
[2018-02-27] MEDS: RIFAXIMIN 550 MG TABLET NG SCH ×2 (09:43→21:12)
[2018-02-27] MEDS ORDERED: VANCOMYCIN INJ 2,000 MG in SODIUM CHLORIDE 0.9% 500 ML IV SCH (11:00)
[2018-02-27 12:21] LABS: ABG Base Excess 2.9 MMOL/L (-2.5-2.5); ABG HCO3 26.9 MMOL/L (20-26); ABG Oxygen Saturation 88.3 % (95-100); ABG PCO2 45.1 MM HG (35-48); ABG PH 7.401 (7.35-7.45); ABG PO2 58.5 MM HG (80-95); ABG TCO2 26.2 MMOL/L (23-27)
[2018-02-27] MEDS: ZINC OXIDE PASTE 113 GM TUBE TOP SCH ×2 (12:40→21:12)
[2018-02-27] MEDS: PANTOPRAZOLE 40 MG VIAL IV SCH (16:28)
[2018-02-28] MEDS: INSULIN LISPRO 100 UNIT/ML SUBCUT SCH ×4 (00:47→18:42)
[2018-02-28] MEDS: PROPOFOL 1,000 MG/100 ML BOTTLE IV SCH ×5 (02:19→23:30)
[2018-02-28] MEDS: ALBUTEROL/IPRATROPIUM 3 ML NEB RESP TX SCH ×6 (02:35→23:31)
[2018-02-28] MEDS: SODIUM BICARB INJ 50 MEQ in DEXTROSE 5% 950 ML IV SCH ×4 (03:10→21:00)
[2018-02-28 04:07] LABS: Basophils # 0.1 10*3/uL (0.0-0.2); Basophils % 0.3 % (0.0-0.8); Eosinophils % 0.1 % (0.00-10.9); Hematocrit 24.8 VOL% (35.7-47.0); Hemoglobin 7.4 GM/DL (12.0-16.0); Immature Granulocytes % 4.1 %; Immature Granulocytes Absolute 0.82 #; Lymphocytes # 1.3 10*3/uL (1.4-4.0); Lymphocytes % 6.4 % (21.3-54.2); Mean Corpuscular HGB Conc 29.8 GM/DL (32-36); Mean Corpuscular Hemoglobin 34 PG (27-34); Mean Corpuscular Volume 113.8 FL (87-102); Monocytes # 1.1 10*3/uL (0.11-0.8); Monocytes % 5.6 % (1.7-12.7); NRBC # 0.27 10*3/uL; Neutrophils # 16.6 10*3/uL (1.4-7.4); Neutrophils % 83.5 % (38.7-73.9); Red Blood Count 2.18 MC/CUMM (3.8-5.5); Red Cell Distribution Width 23.7 % (9.3-17.3); White Blood Count 19.9 T/CUMM (4-12)
[2018-02-28 04:11] LABS: Platelet Count 36 T/CUMM (130-400)
[2018-02-28 04:24] LABS: Allen Test Positive; Pt O2 Delivery Device Ventilator
[2018-02-28 04:25] LABS: ABG Base Excess 3.8 MMOL/L (-2.5-2.5); ABG HCO3 27.9 MMOL/L (20-26); ABG Oxygen Saturation 98.4 % (95-100); ABG PCO2 43.6 MM HG (35-48); ABG PH 7.425 (7.35-7.45); ABG TCO2 26.8 MMOL/L (23-27)
[2018-02-28 04:28] LABS: Anisocytosis 2+; Band Neutrophils 29 % (0-10); Lymphocytes 8 % (20-55); Nucleated Red Blood Cells 1 (0-5); Polychromasia 1+; Segmented Neutrophils 60 % (50-85); Total Cells Counted 100
[2018-02-28 04:29] LABS: Macrocytosis 1+; Poikilocytosis 1+
[2018-02-28 04:31] LABS: Calcium 7.7 MG/DL (8.5-10.1); Osmolality,Calculated 309.7 MOS/KG (273-304); Potassium 4.9 MMOL/L (3.5-5.1)
[2018-02-28] MEDS: MAGNESIUM SULF RIDER 2 GM in PREMIX 1 EACH IV PRN (05:47)
[2018-02-28] MEDS ORDERED: ceFAZolin 1,000 MG in SYRINGE 1 EACH IV ONE (06:00)
[2018-02-28] MEDS ORDERED: GLUCAGON 1 MG VIAL IM PRN (07:03)
[2018-02-28] MEDS ORDERED: DEXTROSE 50% 25 GM/50 ML VIAL IV PRN (07:03)
[2018-02-28] MEDS: ASCORBIC ACID 500 MG TABLET PO SCH ×2 (08:38→21:07)
[2018-02-28] MEDS: LACTULOSE 20 GM/30 ML UDCUP PO SCH (08:39)
[2018-02-28] MEDS: prednisoLONE 15 MG/5 ML ORAL.SYR NG SCH (08:39)
[2018-02-28] MEDS: RIFAXIMIN 550 MG TABLET NG SCH ×2 (08:39→21:08)
[2018-02-28] MEDS: POTASSIUM CHLORIDE 20 MEQ/15 ML UDCUP NG SCH ×2 (08:42→13:03)
[2018-02-28] MEDS: MULTIVITAMIN LIQUID (CENTRUM) 60 ML BOTTLE NG SCH (10:16)
[2018-02-28] MEDS: ZINC OXIDE PASTE 113 GM TUBE TOP SCH ×2 (10:16→21:08)
[2018-02-28] MEDS: PANTOPRAZOLE 40 MG VIAL IV SCH (15:42)
[2018-03-01] MEDS: INSULIN LISPRO 100 UNIT/ML SUBCUT SCH ×4 (00:34→18:24)
[2018-03-01 00:44] LABS: Basophils # 0.1 10*3/uL (0.0-0.2); Basophils % 0.3 % (0.0-0.8); Hematocrit 24.7 VOL% (35.7-47.0); Hemoglobin 7.5 GM/DL (12.0-16.0); Immature Granulocytes % 3.7 %; Immature Granulocytes Absolute 0.82 #; Lymphocytes # 1.4 10*3/uL (1.4-4.0); Lymphocytes % 6.4 % (21.3-54.2); Mean Corpuscular HGB Conc 30.4 GM/DL (32-36); Mean Corpuscular Hemoglobin 35 PG (27-34); Mean Corpuscular Volume 114.9 FL (87-102); Monocytes # 1.3 10*3/uL (0.11-0.8); Monocytes % 5.6 % (1.7-12.7); NRBC # 0.09 10*3/uL; Neutrophils # 18.8 10*3/uL (1.4-7.4); Red Blood Count 2.15 MC/CUMM (3.8-5.5); Red Cell Distribution Width 23.2 % (9.3-17.3); White Blood Count 22.4 T/CUMM (4-12)
[2018-03-01 00:47] LABS: Platelet Count 26 T/CUMM (130-400)
[2018-03-01] MEDS ORDERED: SODIUM CHLORIDE 0.9% 1,000 ML IV PRN (00:59)
[2018-03-01 01:04] LABS: Potassium 4.8 MMOL/L (3.5-5.1)
[2018-03-01] MEDS: MAGNESIUM SULF RIDER 2 GM in PREMIX 1 EACH IV PRN (01:21)
[2018-03-01] MEDS: SODIUM BICARB INJ 50 MEQ in DEXTROSE 5% 950 ML IV SCH ×2 (01:21→12:55)
[2018-03-01 01:35] LABS: INR 1.4; PT Patient Result 14.3 SECS
[2018-03-01 02:34] LABS: Band Neutrophils 10 % (0-10); Lymphocytes 10 % (20-55); Myelocytes 2 %; Promyelocytes 1 %; Segmented Neutrophils 73 % (50-85)
[2018-03-01 02:35] LABS: Platelet Estimate Decreased
[2018-03-01 02:36] LABS: Hypochromasia 1+
[2018-03-01 02:37] LABS: Polychromasia Few
[2018-03-01 02:39] LABS: Anisocytosis 2+; Microcytosis 1+
[2018-03-01 02:40] LABS: Total Cells Counted 100
[2018-03-01 03:25] LABS: ABG Base Excess 4.4 MMOL/L (-2.5-2.5); ABG HCO3 28.9 MMOL/L (20-26); ABG Oxygen Saturation 98.5 % (95-100); ABG PCO2 43.2 MM HG (35-48); ABG PH 7.443 (7.35-7.45); ABG PO2 136.7 MM HG (80-95); ABG TCO2 30.2 MMOL/L (23-27); Allen Test Positive; Pt O2 Delivery Device Ventilator
[2018-03-01] MEDS: ALBUTEROL/IPRATROPIUM 3 ML NEB RESP TX SCH ×6 (04:05→23:54)
[2018-03-01] MEDS: PROPOFOL 1,000 MG/100 ML BOTTLE IV SCH ×3 (05:50→18:05)
[2018-03-01] MEDS: ASCORBIC ACID 500 MG TABLET PO SCH ×2 (09:11→20:15)
[2018-03-01] MEDS: RIFAXIMIN 550 MG TABLET NG SCH ×2 (09:11→20:14)
[2018-03-01] MEDS: prednisoLONE 15 MG/5 ML ORAL.SYR NG SCH (09:11)
[2018-03-01] MEDS: MULTIVITAMIN LIQUID (CENTRUM) 60 ML BOTTLE NG SCH (09:13)
[2018-03-01] MEDS: ZINC OXIDE PASTE 113 GM TUBE TOP SCH ×2 (09:14→20:15)
[2018-03-01 09:38] LABS: Basophils # 0.1 10*3/uL (0.0-0.2); Basophils % 0.6 % (0.0-0.8); Hematocrit 27.3 VOL% (35.7-47.0); Hemoglobin 8.3 GM/DL (12.0-16.0); Immature Granulocytes % 2.3 %; Immature Granulocytes Absolute 0.47 #; Lymphocytes # 1.7 10*3/uL (1.4-4.0); Lymphocytes % 8.4 % (21.3-54.2); Mean Corpuscular HGB Conc 30.4 GM/DL (32-36); Mean Corpuscular Hemoglobin 33 PG (27-34); Mean Corpuscular Volume 108.8 FL (87-102); Mean Platelet Volume 12.6 FL (9.6-12.0); Monocytes # 1.3 10*3/uL (0.11-0.8); Monocytes % 6.2 % (1.7-12.7); NRBC # 0.09 10*3/uL; Neutrophils % 82.5 % (38.7-73.9); Red Blood Count 2.51 MC/CUMM (3.8-5.5); Red Cell Distribution Width 22.6 % (9.3-17.3); White Blood Count 20.5 T/CUMM (4-12)
[2018-03-01 09:48] LABS: Platelet Count 48 T/CUMM (130-400)
[2018-03-01 10:08] LABS: Anisocytosis 1+; Band Neutrophils 10 % (0-10); Eosinophils 2 % (0-10); Lymphocytes 8 % (20-55); Nucleated Red Blood Cells 0 (0-5); Segmented Neutrophils 73 % (50-85); Total Cells Counted 100
[2018-03-01 10:09] LABS: Hypochromasia 1+; Macrocytosis 1+; Platelet Estimate Decreased
[2018-03-01] MEDS: LACTULOSE 20 GM/30 ML UDCUP PO SCH (10:38)
[2018-03-01] MEDS: DEXTROSE 5% 1,000 ML IV SCH (11:30)
[2018-03-01] MEDS: PANTOPRAZOLE 40 MG VIAL IV SCH (16:21)
[2018-03-02] MEDS: INSULIN LISPRO 100 UNIT/ML SUBCUT SCH ×4 (01:22→18:00)
[2018-03-02] MEDS: PROPOFOL 1,000 MG/100 ML BOTTLE IV SCH ×4 (02:05→23:46)
[2018-03-02] MEDS: ALBUTEROL/IPRATROPIUM 3 ML NEB RESP TX SCH ×6 (03:31→23:48)
[2018-03-02 03:58] LABS: Allen Test Positive; Pt O2 Delivery Device Ventilator
[2018-03-02 04:00] LABS: ABG Base Excess 3.2 MMOL/L (-2.5-2.5); ABG HCO3 27.3 MMOL/L (20-26); ABG PCO2 44.1 MM HG (35-48); ABG PH 7.413 (7.35-7.45); ABG TCO2 26.1 MMOL/L (23-27)
[2018-03-02 05:01] LABS: Basophils # 0.1 10*3/uL (0.0-0.2); Basophils % 0.3 % (0.0-0.8); Eosinophils % 0.2 % (0.00-10.9); Hematocrit 25.7 VOL% (35.7-47.0); Hemoglobin 8.2 GM/DL (12.0-16.0); Immature Granulocytes % 2.7 %; Immature Granulocytes Absolute 0.54 #; Lymphocytes # 1.7 10*3/uL (1.4-4.0); Lymphocytes % 8.7 % (21.3-54.2); Mean Corpuscular HGB Conc 31.9 GM/DL (32-36); Mean Corpuscular Hemoglobin 34 PG (27-34); Mean Corpuscular Volume 104.9 FL (87-102); Monocytes # 1.2 10*3/uL (0.11-0.8); Monocytes % 5.9 % (1.7-12.7); NRBC # 0.04 10*3/uL; Neutrophils # 16.5 10*3/uL (1.4-7.4); Neutrophils % 82.2 % (38.7-73.9); Platelet Count 49 T/CUMM (130-400); Red Blood Count 2.45 MC/CUMM (3.8-5.5); Red Cell Distribution Width 21.9 % (9.3-17.3)
[2018-03-02 05:20] LABS: Albumin 2.2 G/DL (3.4-5.0); Bilirubin,Total 3.7 MG/DL (0.2-1.0); Calcium 8.2 MG/DL (8.5-10.1); Osmolality,Calculated 298.4 MOS/KG (273-304); Potassium 4.3 MMOL/L (3.5-5.1); Total Protein 6.9 G/DL (6.4-8.3)
[2018-03-02 05:47] LABS: Band Neutrophils 8 % (0-10); Eosinophils 2 % (0-10); Lymphocytes 13 % (20-55); Myelocytes 1 %; Segmented Neutrophils 72 % (50-85); Total Cells Counted 100
[2018-03-02 05:53] LABS: Atypical Lymphocytes Few; Hypochromasia 1+
[2018-03-02 05:54] LABS: Macrocytosis 1+; Platelet Estimate Decreased
[2018-03-02] MEDS: MAGNESIUM SULF RIDER 2 GM in PREMIX 1 EACH IV PRN (06:27)
[2018-03-02] MEDS: prednisoLONE 15 MG/5 ML ORAL.SYR NG SCH (09:01)
[2018-03-02] MEDS: MULTIVITAMIN LIQUID (CENTRUM) 60 ML BOTTLE NG SCH (09:02)
[2018-03-02] MEDS: ASCORBIC ACID 500 MG TABLET PO SCH ×2 (09:03→21:58)
[2018-03-02] MEDS: RIFAXIMIN 550 MG TABLET NG SCH ×2 (09:03→21:58)
[2018-03-02] MEDS: ZINC OXIDE PASTE 113 GM TUBE TOP SCH ×2 (09:04→21:58)
[2018-03-02] MEDS: DEXTROSE 5% 1,000 ML IV SCH (09:05)
[2018-03-02] MEDS: PANTOPRAZOLE 40 MG VIAL IV SCH (15:30)
[2018-03-03] MEDS: ALBUTEROL/IPRATROPIUM 3 ML NEB RESP TX SCH ×5 (03:30→19:25)
[2018-03-03 03:33] LABS: ABG Base Excess 1.9 MMOL/L (-2.5-2.5); ABG HCO3 26.4 MMOL/L (20-26); ABG Oxygen Saturation 98.3 % (95-100); ABG PCO2 41.1 MM HG (35-48); ABG PH 7.426 (7.35-7.45); ABG TCO2 27.7 MMOL/L (23-27); Allen Test Positive; Pt O2 Delivery Device Ventilator
[2018-03-03] MEDS: INSULIN LISPRO 100 UNIT/ML SUBCUT SCH ×4 (03:46→18:28)
[2018-03-03 04:20] LABS: Basophils % 0.2 % (0.0-0.8); Eosinophils % 0.1 % (0.00-10.9); Hematocrit 26.2 VOL% (35.7-47.0); Immature Granulocytes Absolute 0.39 #; Lymphocytes # 1.7 10*3/uL (1.4-4.0); Lymphocytes % 8.7 % (21.3-54.2); Mean Corpuscular HGB Conc 30.5 GM/DL (32-36); Mean Corpuscular Hemoglobin 33 PG (27-34); Mean Corpuscular Volume 108.7 FL (87-102); Mean Platelet Volume 12.6 FL (9.6-12.0); Monocytes # 1.1 10*3/uL (0.11-0.8); Monocytes % 5.4 % (1.7-12.7); NRBC # 0.02 10*3/uL; Neutrophils # 16.4 10*3/uL (1.4-7.4); Neutrophils % 83.6 % (38.7-73.9); Red Blood Count 2.41 MC/CUMM (3.8-5.5); Red Cell Distribution Width 21.3 % (9.3-17.3); White Blood Count 19.6 T/CUMM (4-12)
[2018-03-03 04:23] LABS: Platelet Count 71 T/CUMM (130-400)
[2018-03-03 04:40] LABS: Albumin 2.2 G/DL (3.4-5.0); Bilirubin,Total 3.6 MG/DL (0.2-1.0); Calcium 8.2 MG/DL (8.5-10.1); Osmolality,Calculated 296.6 MOS/KG (273-304); Potassium 4.4 MMOL/L (3.5-5.1); Total Protein 6.9 G/DL (6.4-8.3)
[2018-03-03] MEDS: DEXTROSE 5% 1,000 ML IV SCH (05:21)
[2018-03-03 05:24] LABS: Band Neutrophils 7 % (0-10); Hypochromasia 1+; Lymphocytes 3 % (20-55); Macrocytosis Slight; Ovalocytes Slight; Platelet Estimate Decreased; Segmented Neutrophils 83 % (50-85); Total Cells Counted 100
[2018-03-03] MEDS: MAGNESIUM SULF RIDER 2 GM in PREMIX 1 EACH IV PRN (05:42)
[2018-03-03] MEDS: PROPOFOL 1,000 MG/100 ML BOTTLE IV SCH (07:52)
[2018-03-03] MEDS: ASCORBIC ACID 500 MG TABLET PO SCH ×2 (09:38→20:57)
[2018-03-03] MEDS: MULTIVITAMIN LIQUID (CENTRUM) 60 ML BOTTLE NG SCH (09:38)
[2018-03-03] MEDS: LANSOPRAZOLE ODT 30 MG TABLET NG SCH (09:38)
[2018-03-03] MEDS: ACETAMINOPHEN 500 MG TABLET PO PRN ×2 (09:38→15:23)
[2018-03-03] MEDS: ZINC OXIDE PASTE 113 GM TUBE TOP SCH ×2 (09:39→21:03)
[2018-03-03 10:58] LABS: ABG Base Excess 1.8 MMOL/L (-2.5-2.5); ABG HCO3 25.9 MMOL/L (20-26); ABG Oxygen Saturation 92.2 % (95-100); ABG PCO2 38.1 MM HG (35-48); ABG PO2 63.8 MM HG (80-95); ABG TCO2 24.1 MMOL/L (23-27); Allen Test Positive; Pt O2 Delivery Device Venturi Mask
[2018-03-03 13:39] LABS: ABG Base Excess 1.7 MMOL/L (-2.5-2.5); ABG HCO3 25.8 MMOL/L (20-26); ABG Oxygen Saturation 91.7 % (95-100); ABG PCO2 35.4 MM HG (35-48); ABG PH 7.462 (7.35-7.45); ABG PO2 62.3 MM HG (80-95); ABG TCO2 23.1 MMOL/L (23-27)
[2018-03-03] MEDS ORDERED: IBUPROFEN 800 MG TABLET PO PRN (15:42)
[2018-03-04] MEDS: ALBUTEROL/IPRATROPIUM 3 ML NEB RESP TX SCH ×7 (00:23→23:27)
[2018-03-04] MEDS: INSULIN LISPRO 100 UNIT/ML SUBCUT SCH ×5 (00:36→23:52)
[2018-03-04] MEDS: DEXTROSE 5% 1,000 ML IV SCH (03:39)
[2018-03-04 04:33] LABS: ABG Base Excess -1.9 MMOL/L (-2.5-2.5); ABG HCO3 21.1 MMOL/L (20-26); ABG PCO2 31.5 MM HG (35-48); ABG PH 7.444 (7.35-7.45); ABG PO2 89.9 MM HG (80-95); ABG TCO2 22.1 MMOL/L (23-27)
[2018-03-04 04:34] LABS: ABG Oxygen Saturation 97.3 % (95-100)
[2018-03-04 04:44] LABS: Bilirubin,Direct 3.68 MG/DL (0.0-0.20); Bilirubin,Total 4.5 MG/DL (0.2-1.0)
[2018-03-04 04:45] LABS: Albumin 2.1 G/DL (3.4-5.0); Bilirubin,Indirect 0.8 MG/DL (0.0-1.0); Total Protein 7.3 G/DL (6.4-8.3)
[2018-03-04] MEDS: PROPOFOL 1,000 MG/100 ML BOTTLE IV SCH (04:49)
[2018-03-04] MEDS: ZINC OXIDE PASTE 113 GM TUBE TOP SCH ×2 (08:16→20:10)
[2018-03-04] MEDS: LANSOPRAZOLE ODT 30 MG TABLET NG SCH (08:17)
[2018-03-04] MEDS: MULTIVITAMIN LIQUID (CENTRUM) 60 ML BOTTLE NG SCH (08:17)
[2018-03-04] MEDS: ASCORBIC ACID 500 MG TABLET PO SCH ×2 (08:17→20:10)
[2018-03-04] MEDS: LACTULOSE 20 GM/30 ML UDCUP PO SCH ×2 (17:51→23:52)
[2018-03-05] MEDS: ALBUTEROL/IPRATROPIUM 3 ML NEB RESP TX SCH ×6 (04:35→23:14)
[2018-03-05 04:43] LABS: ABG Base Excess -1.8 MMOL/L (-2.5-2.5); ABG HCO3 20.8 MMOL/L (20-26); ABG PCO2 27.6 MM HG (35-48); ABG PH 7.495 (7.35-7.45); ABG PO2 60.2 MM HG (80-95); ABG TCO2 21.6 MMOL/L (23-27)
[2018-03-05] MEDS: INSULIN LISPRO 100 UNIT/ML SUBCUT SCH ×3 (06:05→19:00)
[2018-03-05] MEDS: LACTULOSE 20 GM/30 ML UDCUP PO SCH ×3 (06:06→18:55)
[2018-03-05 07:04] LABS: Basophils # 0.1 10*3/uL (0.0-0.2); Basophils % 0.4 % (0.0-0.8); Eosinophils % 0.1 % (0.00-10.9); Hematocrit 25.8 VOL% (35.7-47.0); Lymphocytes # 1.9 10*3/uL (1.4-4.0); Lymphocytes % 9.3 % (21.3-54.2); Mean Corpuscular Hemoglobin 33 PG (27-34); Mean Corpuscular Volume 105.3 FL (87-102); Monocytes % 4.8 % (1.7-12.7); NRBC # 0.02 10*3/uL; Neutrophils # 17.7 10*3/uL (1.4-7.4); Neutrophils % 84.4 % (38.7-73.9); Platelet Count 139 T/CUMM (130-400); Red Blood Count 2.45 MC/CUMM (3.8-5.5); Red Cell Distribution Width 21.8 % (9.3-17.3); White Blood Count 20.9 T/CUMM (4-12)
[2018-03-05 07:29] LABS: Band Neutrophils 8 % (0-10); Calcium 8.6 MG/DL (8.5-10.1); Hypochromasia 2+; Lymphocytes 2 % (20-55); Microcytosis 1+; Osmolality,Calculated 297.4 MOS/KG (273-304); Platelet Estimate Decreased; Potassium 4.4 MMOL/L (3.5-5.1); Segmented Neutrophils 86 % (50-85); Total Cells Counted 100
[2018-03-05 07:33] LABS: Albumin 2.3 G/DL (3.4-5.0); Bilirubin,Direct 3.48 MG/DL (0.0-0.20); Bilirubin,Indirect 0.6 MG/DL (0.0-1.0); Bilirubin,Total 4.1 MG/DL (0.2-1.0); Total Protein 7.7 G/DL (6.4-8.3)
[2018-03-05] MEDS: ZINC OXIDE PASTE 113 GM TUBE TOP SCH ×2 (08:46→21:26)
[2018-03-05] MEDS: DEXTROSE 5% 1,000 ML IV SCH ×2 (08:48→21:58)
[2018-03-05] MEDS: MULTIVITAMIN LIQUID (CENTRUM) 60 ML BOTTLE NG SCH (09:58)
[2018-03-05] MEDS: ASCORBIC ACID 500 MG TABLET PO SCH ×2 (09:59→21:26)
[2018-03-05] MEDS: LANSOPRAZOLE ODT 30 MG TABLET NG SCH (09:59)
[2018-03-05] MEDS: MAGNESIUM SULF RIDER 2 GM in PREMIX 1 EACH IV PRN (10:03)
[2018-03-05] MEDS ORDERED: ACETAMINOPHEN 325 MG TABLET PO ONE (13:53)
[2018-03-06 00:09] LABS: HIV Antigen/Antibody Result Nonreactive (Nonreactive); Hepatitis B Surface Ag Quant < 0.10 Index; Hepatitis B Surface Ag Result Negative (Negative); Hepatitis C Virus Ab Quant 0.27 Index; Hepatitis C Virus Ab Result Negative (Negative)
[2018-03-06] MEDS: LACTULOSE 20 GM/30 ML UDCUP PO SCH ×4 (00:26→18:12)
[2018-03-06] MEDS: INSULIN LISPRO 100 UNIT/ML SUBCUT SCH ×4 (00:27→18:00)
[2018-03-06] MEDS: ALBUTEROL/IPRATROPIUM 3 ML NEB RESP TX SCH ×5 (02:14→19:52)
[2018-03-06 07:13] LABS: Basophils # 0.1 10*3/uL (0.0-0.2); Basophils % 0.3 % (0.0-0.8); Eosinophils # 0.5 10*3/uL (0.0-0.87); Eosinophils % 2.8 % (0.00-10.9); Hematocrit 24.4 VOL% (35.7-47.0); Hemoglobin 7.5 GM/DL (12.0-16.0); Immature Granulocytes % 0.9 %; Immature Granulocytes Absolute 0.16 #; Lymphocytes # 1.7 10*3/uL (1.4-4.0); Lymphocytes % 9.8 % (21.3-54.2); Mean Corpuscular HGB Conc 30.7 GM/DL (32-36); Mean Corpuscular Hemoglobin 33 PG (27-34); Mean Corpuscular Volume 106.6 FL (87-102); Mean Platelet Volume 12.2 FL (9.6-12.0); Monocytes # 0.8 10*3/uL (0.11-0.8); Neutrophils # 13.7 10*3/uL (1.4-7.4); Neutrophils % 81.2 % (38.7-73.9); Platelet Count 142 T/CUMM (130-400); Red Blood Count 2.29 MC/CUMM (3.8-5.5); Red Cell Distribution Width 21.9 % (9.3-17.3); White Blood Count 16.9 T/CUMM (4-12)
[2018-03-06 07:43] LABS: Albumin 2.2 G/DL (3.4-5.0); Calcium 8.6 MG/DL (8.5-10.1); Osmolality,Calculated 294.4 MOS/KG (273-304); Potassium 4.1 MMOL/L (3.5-5.1); Prealbumin 13.5 MG/DL (20-40); Total Protein 7.5 G/DL (6.4-8.3)
[2018-03-06 07:45] LABS: Hypochromasia 1+; Macrocytosis 1+
[2018-03-06 07:46] LABS: Anisocytosis 1+; Platelet Estimate Adequate
[2018-03-06] MEDS: ZINC OXIDE PASTE 113 GM TUBE TOP SCH ×2 (09:00→21:46)
[2018-03-06] MEDS: LANSOPRAZOLE ODT 30 MG TABLET NG SCH (10:15)
[2018-03-06] MEDS: ASCORBIC ACID 500 MG TABLET PO SCH ×3 (10:15→21:47)
[2018-03-06] MEDS: MULTIVITAMIN LIQUID (CENTRUM) 60 ML BOTTLE NG SCH (10:15)
[2018-03-06] MEDS: DEXTROSE 5% 1,000 ML IV SCH ×2 (10:22→18:10)
[2018-03-06] MEDS: FOLIC ACID INJ 1 MG in SYRINGE 1 EACH IV SCH (13:30)
[2018-03-06 15:29] LABS: Apearance,Urine Slightly Hazy (Clear); Bacteria,Urine Few /HPF (Few); Bilirubin,Urine Negative (Negative); Blood, Urine Moderate mg/dL (Negative); Glucose,Urine (UA) Negative (Negative); Ketones,Urine Negative (Negative); Nitrite,Urine Negative (Negative); Protein,Urine 30 MG/DL; RBC,Urine 56 /HPF (0-4); Squamous Epithelial Cell,Urine Occasional /HPF (0-10); Transitional Epi Cells,Urine Occasional /HPF (<1); Urine Color Amber (Yellow); Urine Specific Gravity 1.014 (1.001-1.035); Urine Urobilinogen < 2.0 EU/DL (0.2-1.0); WBC,Urine 78 /HPF (0-6)
[2018-03-06] MEDS ORDERED: IBUPROFEN 400 MG TABLET PO PRN (16:31)
[2018-03-06] MEDS ORDERED: ACETAMINOPHEN 325 MG TABLET PO ONE (16:32)
[2018-03-06] MEDS: CEFEPIME 1,000 MG in SYRINGE 1 EACH IV SCH (17:23)
[2018-03-06] MEDS: MICAFUNGIN 100 MG in SODIUM CHLORIDE 0.9% 100 ML IV SCH (17:37)
[2018-03-07] MEDS: ALBUTEROL/IPRATROPIUM 3 ML NEB RESP TX SCH ×7 (00:09→23:17)
[2018-03-07] MEDS: INSULIN LISPRO 100 UNIT/ML SUBCUT SCH ×4 (00:37→17:58)
[2018-03-07] MEDS: LACTULOSE 20 GM/30 ML UDCUP PO SCH ×4 (06:41→18:01)
[2018-03-07 07:43] LABS: Calcium 8.5 MG/DL (8.5-10.1); Osmolality,Calculated 298.3 MOS/KG (273-304); Potassium 3.7 MMOL/L (3.5-5.1)
[2018-03-07] MEDS: ASCORBIC ACID 500 MG TABLET PO SCH ×2 (11:28→21:53)
[2018-03-07] MEDS: FOLIC ACID INJ 1 MG in SYRINGE 1 EACH IV SCH (11:32)
[2018-03-07] MEDS: CEFEPIME 1,000 MG in SYRINGE 1 EACH IV SCH ×3 (11:34→17:59)
[2018-03-07] MEDS: THIAMINE 200 MG/2 ML VIAL IV SCH (11:36)
[2018-03-07] MEDS: ZINC OXIDE PASTE 113 GM TUBE TOP SCH ×2 (11:44→21:53)
[2018-03-07] MEDS: LANSOPRAZOLE ODT 30 MG TABLET NG SCH (11:44)
[2018-03-07] MEDS: MULTIVITAMIN LIQUID (CENTRUM) 60 ML BOTTLE NG SCH (11:45)
[2018-03-07] MEDS: DEXTROSE 5% 1,000 ML IV SCH ×2 (14:59)
[2018-03-07] MEDS: POTASSIUM CHLORIDE RIDER 10 MEQ in PREMIX 1 EACH IV PRN ×2 (15:23→16:38)
[2018-03-07] MEDS: MICAFUNGIN 100 MG in SODIUM CHLORIDE 0.9% 100 ML IV SCH (18:25)
[2018-03-08] MEDS: INSULIN LISPRO 100 UNIT/ML SUBCUT SCH ×4 (00:06→19:16)
[2018-03-08] MEDS: LACTULOSE 20 GM/30 ML UDCUP PO SCH ×4 (00:06→18:41)
[2018-03-08] MEDS: CEFEPIME 1,000 MG in SYRINGE 1 EACH IV SCH ×3 (00:07→19:15)
[2018-03-08] MEDS: ALBUTEROL/IPRATROPIUM 3 ML NEB RESP TX SCH ×5 (02:03→19:30)
[2018-03-08] MEDS: DEXTROSE 5% 1,000 ML IV SCH (05:11)
[2018-03-08 06:49] LABS: Basophils % 0.2 % (0.0-0.8); Eosinophils # 0.7 10*3/uL (0.0-0.87); Eosinophils % 4.4 % (0.00-10.9); Hematocrit 24.8 VOL% (35.7-47.0); Hemoglobin 7.7 GM/DL (12.0-16.0); Immature Granulocytes % 1.1 %; Immature Granulocytes Absolute 0.18 #; Lymphocytes # 1.5 10*3/uL (1.4-4.0); Lymphocytes % 9.2 % (21.3-54.2); Mean Corpuscular Hemoglobin 33 PG (27-34); Mean Platelet Volume 12.3 FL (9.6-12.0); Monocytes # 0.8 10*3/uL (0.11-0.8); Monocytes % 5.2 % (1.7-12.7); Neutrophils # 12.8 10*3/uL (1.4-7.4); Neutrophils % 79.9 % (38.7-73.9); Platelet Count 173 T/CUMM (130-400); Red Blood Count 2.34 MC/CUMM (3.8-5.5); White Blood Count 16.1 T/CUMM (4-12)
[2018-03-08 07:22] LABS: Calcium 8.1 MG/DL (8.5-10.1); Osmolality,Calculated 287.1 MOS/KG (273-304); Potassium 4.1 MMOL/L (3.5-5.1)
[2018-03-08 07:26] LABS: Albumin 2.4 G/DL (3.4-5.0); Bilirubin,Total 3.5 MG/DL (0.2-1.0); Calcium 7.9 MG/DL (8.5-10.1); Osmolality,Calculated 287.1 MOS/KG (273-304); Potassium 4.4 MMOL/L (3.5-5.1); Total Protein 7.4 G/DL (6.4-8.3)
[2018-03-08 07:49] LABS: Hypochromasia Slight
[2018-03-08 07:50] LABS: Macrocytosis Slight
[2018-03-08] MEDS: MULTIVITAMIN LIQUID (CENTRUM) 60 ML BOTTLE NG SCH (10:02)
[2018-03-08] MEDS: FOLIC ACID INJ 1 MG in SYRINGE 1 EACH IV SCH (10:04)
[2018-03-08] MEDS: ZINC OXIDE PASTE 113 GM TUBE TOP SCH ×2 (10:04→20:58)
[2018-03-08] MEDS: THIAMINE 200 MG/2 ML VIAL IV SCH (10:05)
[2018-03-08] MEDS: ASCORBIC ACID 500 MG TABLET PO SCH ×2 (10:05→20:58)
[2018-03-08] MEDS: LANSOPRAZOLE ODT 30 MG TABLET NG SCH (10:05)
[2018-03-08] MEDS: MICAFUNGIN 100 MG in SODIUM CHLORIDE 0.9% 100 ML IV SCH (19:16)
[2018-03-09] MEDS: ALBUTEROL/IPRATROPIUM 3 ML NEB RESP TX SCH ×7 (00:06→23:45)
[2018-03-09] MEDS: DEXTROSE 5% 1,000 ML IV SCH ×2 (00:43→21:54)
[2018-03-09] MEDS: CEFEPIME 1,000 MG in SYRINGE 1 EACH IV SCH ×3 (00:45→16:50)
[2018-03-09] MEDS: LACTULOSE 20 GM/30 ML UDCUP PO SCH ×4 (00:45→18:16)
[2018-03-09] MEDS: INSULIN LISPRO 100 UNIT/ML SUBCUT SCH ×4 (00:48→18:31)
[2018-03-09 06:55] LABS: Calcium 8.5 MG/DL (8.5-10.1); Osmolality,Calculated 277.8 MOS/KG (273-304); Potassium 3.9 MMOL/L (3.5-5.1)
[2018-03-09] MEDS: MULTIVITAMIN LIQUID (CENTRUM) 60 ML BOTTLE NG SCH (08:35)
[2018-03-09] MEDS: ASCORBIC ACID 500 MG TABLET PO SCH (08:35)
[2018-03-09] MEDS: LANSOPRAZOLE ODT 30 MG TABLET NG SCH (08:36)
[2018-03-09] MEDS: THIAMINE 200 MG/2 ML VIAL IV SCH (10:07)
[2018-03-09] MEDS: MAGNESIUM SULF RIDER 2 GM in PREMIX 1 EACH IV PRN (10:08)
[2018-03-09] MEDS: FOLIC ACID INJ 1 MG in SYRINGE 1 EACH IV SCH (12:47)
[2018-03-09] MEDS: ZINC OXIDE PASTE 113 GM TUBE TOP SCH ×2 (12:49→21:57)
[2018-03-09] MEDS: MICAFUNGIN 100 MG in SODIUM CHLORIDE 0.9% 100 ML IV SCH (17:31)
[2018-03-10] MEDS: LACTULOSE 20 GM/30 ML UDCUP PO SCH ×4 (00:42→17:33)
[2018-03-10] MEDS: CEFEPIME 1,000 MG in SYRINGE 1 EACH IV SCH ×3 (00:42→16:45)
[2018-03-10] MEDS: INSULIN LISPRO 100 UNIT/ML SUBCUT SCH ×4 (00:46→18:18)
[2018-03-10] MEDS: ALBUTEROL/IPRATROPIUM 3 ML NEB RESP TX SCH ×6 (03:15→18:52)
[2018-03-10] MEDS: LANSOPRAZOLE ODT 30 MG TABLET NG SCH (09:35)
[2018-03-10] MEDS: THIAMINE 200 MG/2 ML VIAL IV SCH (09:44)
[2018-03-10] MEDS: FOLIC ACID INJ 1 MG in SYRINGE 1 EACH IV SCH (09:46)
[2018-03-10] MEDS: MULTIVITAMIN LIQUID (CENTRUM) 60 ML BOTTLE NG SCH (09:50)
[2018-03-10] MEDS: ZINC OXIDE PASTE 113 GM TUBE TOP SCH ×2 (15:23→21:51)
[2018-03-10] MEDS: TOBRAMYCIN BLADDERIRR SCH (15:47)
[2018-03-10] MEDS: SODIUM CHLORIDE 0.9% BLADDERIRR SCH (15:47)
[2018-03-10] MEDS: DEXTROSE 5% 1,000 ML IV SCH (15:53)
[2018-03-10] MEDS: MICAFUNGIN 100 MG in SODIUM CHLORIDE 0.9% 100 ML IV SCH (17:33)
[2018-03-11] MEDS: INSULIN LISPRO 100 UNIT/ML SUBCUT SCH ×4 (00:02→18:14)
[2018-03-11] MEDS: CEFEPIME 1,000 MG in SYRINGE 1 EACH IV SCH ×3 (00:02→16:40)
[2018-03-11] MEDS: LACTULOSE 20 GM/30 ML UDCUP PO SCH ×4 (00:02→18:17)
[2018-03-11] MEDS: ALBUTEROL/IPRATROPIUM 3 ML NEB RESP TX SCH ×7 (00:10→23:58)
[2018-03-11 05:54] LABS: Basophils % 0.1 % (0.0-0.8); Eosinophils # 0.8 10*3/uL (0.0-0.87); Eosinophils % 5.1 % (0.00-10.9); Hemoglobin 7.8 GM/DL (12.0-16.0); Immature Granulocytes % 0.8 %; Immature Granulocytes Absolute 0.12 #; Lymphocytes # 1.4 10*3/uL (1.4-4.0); Lymphocytes % 9.6 % (21.3-54.2); Mean Corpuscular HGB Conc 31.2 GM/DL (32-36); Mean Corpuscular Hemoglobin 33 PG (27-34); Mean Corpuscular Volume 106.4 FL (87-102); Mean Platelet Volume 11.6 FL (9.6-12.0); Monocytes # 0.8 10*3/uL (0.11-0.8); Monocytes % 5.5 % (1.7-12.7); Neutrophils # 11.8 10*3/uL (1.4-7.4); Neutrophils % 78.9 % (38.7-73.9); Platelet Count 281 T/CUMM (130-400); Red Blood Count 2.35 MC/CUMM (3.8-5.5); Red Cell Distribution Width 19.9 % (9.3-17.3)
[2018-03-11] MEDS: TOBRAMYCIN BLADDERIRR SCH ×2 (06:10→18:20)
[2018-03-11] MEDS: SODIUM CHLORIDE 0.9% BLADDERIRR SCH ×2 (06:10→18:20)
[2018-03-11 06:21] LABS: Calcium 8.5 MG/DL (8.5-10.1)
[2018-03-11 06:38] LABS: Anisocytosis Slight; Band Neutrophils 7 % (0-10); Lymphocytes 16 % (20-55); Macrocytosis 3+; Platelet Estimate Normal; Segmented Neutrophils 71 % (50-85); Total Cells Counted 100
[2018-03-11] MEDS: MULTIVITAMIN LIQUID (CENTRUM) 60 ML BOTTLE NG SCH (08:52)
[2018-03-11] MEDS: LANSOPRAZOLE ODT 30 MG TABLET NG SCH (08:52)
[2018-03-11] MEDS: FOLIC ACID INJ 1 MG in SYRINGE 1 EACH IV SCH (08:57)
[2018-03-11] MEDS: THIAMINE 200 MG/2 ML VIAL IV SCH (09:01)
[2018-03-11] MEDS: ZINC OXIDE PASTE 113 GM TUBE TOP SCH ×2 (11:30→22:00)
[2018-03-11] MEDS: DEXTROSE 5% 1,000 ML IV SCH (16:39)
[2018-03-11] MEDS: MICAFUNGIN 100 MG in SODIUM CHLORIDE 0.9% 100 ML IV SCH (18:18)
[2018-03-12] MEDS: LACTULOSE 20 GM/30 ML UDCUP PO SCH ×3 (00:09→12:18)
[2018-03-12] MEDS: CEFEPIME 1,000 MG in SYRINGE 1 EACH IV SCH ×2 (00:09→10:33)
[2018-03-12] MEDS: INSULIN LISPRO 100 UNIT/ML SUBCUT SCH ×3 (00:10→12:20)
[2018-03-12] MEDS: ALBUTEROL/IPRATROPIUM 3 ML NEB RESP TX SCH ×3 (03:43→10:45)
[2018-03-12] MEDS: DEXTROSE 5% 1,000 ML IV SCH (06:06)
[2018-03-12] MEDS: TOBRAMYCIN BLADDERIRR SCH (06:16)
[2018-03-12] MEDS: SODIUM CHLORIDE 0.9% BLADDERIRR SCH (06:16)
[2018-03-12] MEDS: LANSOPRAZOLE ODT 30 MG TABLET NG SCH (10:31)
[2018-03-12] MEDS: THIAMINE 200 MG/2 ML VIAL IV SCH (10:31)
[2018-03-12] MEDS: FOLIC ACID INJ 1 MG in SYRINGE 1 EACH IV SCH (10:32)
[2018-03-12] MEDS: ZINC OXIDE PASTE 113 GM TUBE TOP SCH (10:34)
[2018-03-12] MEDS: MULTIVITAMIN LIQUID (CENTRUM) 60 ML BOTTLE NG SCH (11:13)
[2018-03-12 12:23] VITALS: BP 128/78
== END 2018-03-12 15:48 | DRG 950 ==
LOC: N.ICU 13:56 → SUATTDRO 13:56 → N.5E 03-04 19:00
PROVIDERS: ADMIT Family Medicine; ATTEND Internal Medicine Geriatric Medicine

== ENCOUNTER 2018-03-17 10:03 | Inpatient (IN) ==
[2018-03-17 10:56] LABS: Amorphous Crystals,Urine Occasional /HPF (Few); Apearance,Urine Slightly Hazy (Clear); Bacteria,Urine Occasional /HPF (Few); Bilirubin,Urine Negative (Negative); Blood, Urine Moderate mg/dL (Negative); Glucose,Urine (UA) Negative (Negative); Ketones,Urine Negative (Negative); Nitrite,Urine Negative (Negative); Protein,Urine 100 MG/DL; RBC,Urine 2 /HPF (0-4); Squamous Epithelial Cell,Urine Occasional /HPF (0-10); Transitional Epi Cells,Urine Occasional /HPF (<1); Urine Specific Gravity 1.013 (1.001-1.035); Urine Urobilinogen < 2.0 EU/DL (0.2-1.0); WBC,Urine 7 /HPF (0-6)
[2018-03-17 10:57] LABS: INR 1.5; PT Patient Result 15.4 SECS; Partial Thromboplastin Time 33.3 SECS (0-40); Urine Color Yellow (Yellow)
[2018-03-17 10:58] LABS: Albumin 2.9 G/DL (3.4-5.0); Bilirubin,Direct 2.1 MG/DL (0.0-0.20); Bilirubin,Indirect 0.4 MG/DL (0.0-1.0); Bilirubin,Total 2.5 MG/DL (0.2-1.0)
[2018-03-17] MEDS ORDERED: LACTULOSE 20 GM/30 ML UDCUP PO ONE (12:03)
[2018-03-17 12:16] LABS: Basophils # 0.1 10*3/uL (0.0-0.2); Basophils % 0.4 % (0.0-0.8); Eosinophils # 2.7 10*3/uL (0.0-0.87); Eosinophils % 14.8 % (0.00-10.9); Hematocrit 26.7 VOL% (35.7-47.0); Immature Granulocytes % 2.2 %; Immature Granulocytes Absolute 0.39 #; Lymphocytes # 3.1 10*3/uL (1.4-4.0); Lymphocytes % 16.9 % (21.3-54.2); Mean Corpuscular Hemoglobin 33 PG (27-34); Mean Corpuscular Volume 111.3 FL (87-102); Mean Platelet Volume 11.1 FL (9.6-12.0); Monocytes # 1.1 10*3/uL (0.11-0.8); Monocytes % 6.1 % (1.7-12.7); NRBC # 0.09 10*3/uL; Neutrophils # 10.7 10*3/uL (1.4-7.4); Neutrophils % 59.6 % (38.7-73.9); Platelet Count 277 T/CUMM (130-400); Red Cell Distribution Width 21.5 % (9.3-17.3)
[2018-03-17 12:30] LABS: Calcium 9.1 MG/DL (8.5-10.1); Osmolality,Calculated 317.9 MOS/KG (273-304); Potassium 4.2 MMOL/L (3.5-5.1)
[2018-03-17 12:39] LABS: Anisocytosis 1+; Band Neutrophils 25 % (0-10); Eosinophils 14 % (0-10); Lymphocytes 20 % (20-55); Segmented Neutrophils 40 % (50-85); Total Cells Counted 100
[2018-03-17 12:39] LABS: ABG Base Excess -20.9 MMOL/L (-2.5-2.5); ABG HCO3 8.9 MMOL/L (20-26); ABG Oxygen Saturation 95.9 % (95-100); ABG PO2 96.6 MM HG (80-95); ABG TCO2 6.1 MMOL/L (23-27)
[2018-03-17 12:40] LABS: Platelet Estimate Normal; Poikilocytosis 1+; Polychromasia Slight
[2018-03-17 12:40] LABS: ABG PH 7.182 (7.35-7.45)
[2018-03-17 12:41] LABS: ABG PCO2 16.8 MM HG (35-48)
[2018-03-17] MEDS ORDERED: LACTULOSE 160 GM/240 ML BOTTLE RECTAL SCH (14:00)
[2018-03-17] MEDS: DEXTROSE 5% 1,000 ML IV SCH (15:46)
[2018-03-17] MEDS: PANTOPRAZOLE 40 MG VIAL IV SCH (16:29)
[2018-03-17] MEDS: PIPERACILLIN/TAZOBACTAM 3,375 MG in SODIUM CHLORIDE 0.9% 100 ML IV SCH (16:29)
[2018-03-17] MEDS ORDERED: LACTULOSE 160 GM/240 ML BOTTLE RECTAL PRN (16:33)
[2018-03-17] MEDS ORDERED: LACTULOSE 20 GM/30 ML UDCUP RECTAL PRN (17:00)
[2018-03-17 17:14] LABS: ABG Base Excess -21.4 MMOL/L (-2.5-2.5); ABG HCO3 8.6 MMOL/L (20-26); ABG Oxygen Saturation 94.4 % (95-100); ABG PCO2 15.3 MM HG (35-48); ABG PH 7.187 (7.35-7.45); ABG PO2 91.9 MM HG (80-95); ABG TCO2 5.6 MMOL/L (23-27)
[2018-03-17 21:01] LABS: ABG Base Excess -21.4 MMOL/L (-2.5-2.5); ABG HCO3 8.6 MMOL/L (20-26); ABG Oxygen Saturation 98.7 % (95-100); ABG PH 7.246 (7.35-7.45); ABG TCO2 4.9 MMOL/L (23-27)
[2018-03-17 21:13] LABS: ABG PCO2 11.8 MM HG (35-48)
[2018-03-17] MEDS ORDERED: SODIUM BICARBONATE 50 MEQ/50 ML SYRINGE IV ONE (21:30)
[2018-03-17] MEDS: LACTULOSE 160 GM/240 ML BOTTLE RECTAL SCH (21:41)
[2018-03-17] MEDS: VANCOMYCIN INJ 1,250 MG in SODIUM CHLORIDE 0.9% 250 ML IV SCH (21:44)
[2018-03-18] MEDS: DEXTROSE 5% 1,000 ML IV SCH (03:01)
[2018-03-18 04:33] LABS: Basophils # 0.1 10*3/uL (0.0-0.2); Basophils % 0.3 % (0.0-0.8); Eosinophils # 2.2 10*3/uL (0.0-0.87); Eosinophils % 11.9 % (0.00-10.9); Hematocrit 24.6 VOL% (35.7-47.0); Hemoglobin 7.5 GM/DL (12.0-16.0); Immature Granulocytes % 1.3 %; Immature Granulocytes Absolute 0.24 #; Lymphocytes % 11.1 % (21.3-54.2); Mean Corpuscular HGB Conc 30.5 GM/DL (32-36); Mean Corpuscular Hemoglobin 33 PG (27-34); Mean Corpuscular Volume 107.4 FL (87-102); Monocytes # 0.9 10*3/uL (0.11-0.8); Monocytes % 5.1 % (1.7-12.7); Neutrophils # 12.9 10*3/uL (1.4-7.4); Neutrophils % 70.3 % (38.7-73.9); Platelet Count 291 T/CUMM (130-400); Red Blood Count 2.29 MC/CUMM (3.8-5.5); Red Cell Distribution Width 21.6 % (9.3-17.3); White Blood Count 18.4 T/CUMM (4-12)
[2018-03-18 05:05] LABS: Albumin 2.6 G/DL (3.4-5.0); Bilirubin,Direct 2.1 MG/DL (0.0-0.20); Bilirubin,Indirect 0.7 MG/DL (0.0-1.0); Bilirubin,Total 2.8 MG/DL (0.2-1.0); Total Protein 9.7 G/DL (6.4-8.3)
[2018-03-18 05:12] LABS: Band Neutrophils 9 % (0-10); Eosinophils 9 % (0-10); Hypochromasia 1+; Lymphocytes 14 % (20-55); Ovalocytes Slight; Platelet Estimate Adequate; Segmented Neutrophils 61 % (50-85); Total Cells Counted 100
[2018-03-18 05:14] LABS: Calcium 9.1 MG/DL (8.5-10.1); Osmolality,Calculated 325.4 MOS/KG (273-304); Potassium 3.7 MMOL/L (3.5-5.1); Thyroid Stimulating Hormone 1.09 uIU/ml (0.358-3.74)
[2018-03-18] MEDS: PIPERACILLIN/TAZOBACTAM 3,375 MG in SODIUM CHLORIDE 0.9% 100 ML IV SCH ×2 (06:10→16:29)
[2018-03-18] MEDS ORDERED: SODIUM CHLORIDE 0.9% 1,000 ML IV PRN (07:18)
[2018-03-18] MEDS: PANTOPRAZOLE 40 MG VIAL IV SCH (09:26)
[2018-03-18] MEDS: LACTULOSE 160 GM/240 ML BOTTLE RECTAL SCH ×2 (11:40→22:30)
[2018-03-18] MEDS: NACL 0.45% IV SCH ×2 (12:30→23:31)
[2018-03-18] MEDS: SODIUM BICARB IV SCH ×2 (12:30→23:31)
[2018-03-18] MEDS: DEXTROSE 5% IV SCH ×2 (12:30→23:31)
[2018-03-18] MEDS: BACITRACIN OINT 0.9 GM PACK TOP SCH (16:15)
[2018-03-18 21:05] LABS: Basophils # 0.1 10*3/uL (0.0-0.2); Basophils % 0.7 % (0.0-0.8); Eosinophils # 2.6 10*3/uL (0.0-0.87); Eosinophils % 17.2 % (0.00-10.9); Hematocrit 30.9 VOL% (35.7-47.0); Immature Granulocytes % 1.5 %; Immature Granulocytes Absolute 0.23 #; Lymphocytes # 2.2 10*3/uL (1.4-4.0); Lymphocytes % 14.4 % (21.3-54.2); Mean Corpuscular HGB Conc 31.7 GM/DL (32-36); Mean Corpuscular Hemoglobin 32 PG (27-34); Mean Corpuscular Volume 99.7 FL (87-102); Mean Platelet Volume 9.9 FL (9.6-12.0); Monocytes # 0.9 10*3/uL (0.11-0.8); Monocytes % 5.9 % (1.7-12.7); Neutrophils # 9.1 10*3/uL (1.4-7.4); Neutrophils % 60.3 % (38.7-73.9); Platelet Count 244 T/CUMM (130-400); Red Cell Distribution Width 22.4 % (9.3-17.3)
[2018-03-18 21:08] LABS: Hemoglobin 9.8 GM/DL (12.0-16.0)
[2018-03-18 21:24] LABS: Band Neutrophils 5 % (0-10); Eosinophils 16 % (0-10); Lymphocytes 13 % (20-55); Nucleated Red Blood Cells 3 (0-5); Platelet Estimate Normal; Segmented Neutrophils 62 % (50-85); Total Cells Counted 100
[2018-03-18 21:25] LABS: Albumin 2.7 G/DL (3.4-5.0); Bilirubin,Total 2.8 MG/DL (0.2-1.0); Calcium 8.6 MG/DL (8.5-10.1); Hypochromasia Slight; Macrocytosis Slight; Osmolality,Calculated 327.3 MOS/KG (273-304); Potassium 3.4 MMOL/L (3.5-5.1); Total Protein 9.1 G/DL (6.4-8.3)
[2018-03-19 04:56] LABS: Basophils # 0.1 10*3/uL (0.0-0.2); Basophils % 0.7 % (0.0-0.8); Eosinophils # 3.2 10*3/uL (0.0-0.87); Eosinophils % 20.1 % (0.00-10.9); Hematocrit 30.8 VOL% (35.7-47.0); Hemoglobin 9.8 GM/DL (12.0-16.0); Immature Granulocytes % 1.6 %; Immature Granulocytes Absolute 0.25 #; Lymphocytes # 2.3 10*3/uL (1.4-4.0); Lymphocytes % 14.6 % (21.3-54.2); Mean Corpuscular HGB Conc 31.8 GM/DL (32-36); Mean Corpuscular Hemoglobin 32 PG (27-34); Mean Platelet Volume 10.2 FL (9.6-12.0); Monocytes # 0.9 10*3/uL (0.11-0.8); Monocytes % 5.9 % (1.7-12.7); Neutrophils % 57.1 % (38.7-73.9); Platelet Count 248 T/CUMM (130-400); Red Blood Count 3.11 MC/CUMM (3.8-5.5); Red Cell Distribution Width 23.1 % (9.3-17.3); White Blood Count 15.7 T/CUMM (4-12)
[2018-03-19] MEDS: PIPERACILLIN/TAZOBACTAM 3,375 MG in SODIUM CHLORIDE 0.9% 100 ML IV SCH ×2 (05:21→17:56)
[2018-03-19 05:31] LABS: Albumin 2.7 G/DL (3.4-5.0); Bilirubin,Total 2.5 MG/DL (0.2-1.0); Potassium 3.3 MMOL/L (3.5-5.1); Total Protein 9.2 G/DL (6.4-8.3)
[2018-03-19 06:46] LABS: Band Neutrophils 24 % (0-10); Eosinophils 19 % (0-10); Lymphocytes 8 % (20-55); Nucleated Red Blood Cells 1 (0-5); Segmented Neutrophils 42 % (50-85); Total Cells Counted 100
[2018-03-19 06:47] LABS: Anisocytosis 2+; Poikilocytosis 2+
[2018-03-19 06:48] LABS: Macrocytosis 1+; Polychromasia Slight
[2018-03-19 06:49] LABS: Spherocytes Slight
[2018-03-19] MEDS: BACITRACIN OINT 0.9 GM PACK TOP SCH (09:12)
[2018-03-19] MEDS: SODIUM BICARB IV SCH ×2 (09:13→20:01)
[2018-03-19] MEDS: DEXTROSE 5% IV SCH ×2 (09:13→20:01)
[2018-03-19] MEDS: LACTULOSE 160 GM/240 ML BOTTLE RECTAL SCH (09:13)
[2018-03-19] MEDS: NACL 0.45% IV SCH ×2 (09:13→20:01)
[2018-03-19] MEDS: PANTOPRAZOLE 40 MG VIAL IV SCH (09:13)
[2018-03-19] MEDS ORDERED: LORazepam 2 MG/1 ML VIAL IV PRN (10:33)
[2018-03-19] MEDS ORDERED: LACTULOSE 20 GM/30 ML UDCUP PO PRN (10:35)
[2018-03-19] MEDS ORDERED: POTASSIUM CHLORIDE RIDER 10 MEQ in PREMIX 1 EACH IV PRN (10:45)
[2018-03-19] MEDS ORDERED: LANSOPRAZOLE ODT 30 MG TABLET PO SCH (11:00)
[2018-03-19] MEDS ORDERED: THIAMINE 200 MG/2 ML VIAL IV SCH (11:00)
[2018-03-19] MEDS: POTASSIUM CHLORIDE 20 MEQ TABLET PO PRN ×2 (12:06→14:59)
[2018-03-19] MEDS: THIAMINE INJ 100 MG in SODIUM CHLORIDE 0.9% 100 ML IV SCH (12:34)
[2018-03-19] MEDS: VANCOMYCIN INJ 1,250 MG in SODIUM CHLORIDE 0.9% 250 ML IV SCH (21:15)
[2018-03-19] MEDS: ZINC OXIDE PASTE 113 GM TUBE TOP SCH (23:23)
[2018-03-19] MEDS: LORazepam 2 MG/1 ML VIAL IV PRN (23:26)
[2018-03-20 04:14] LABS: Basophils # 0.1 10*3/uL (0.0-0.2); Basophils % 0.6 % (0.0-0.8); Eosinophils # 3.1 10*3/uL (0.0-0.87); Eosinophils % 21.7 % (0.00-10.9); Hematocrit 27.9 VOL% (35.7-47.0); Hemoglobin 9.2 GM/DL (12.0-16.0); Immature Granulocytes % 1.1 %; Immature Granulocytes Absolute 0.16 #; Lymphocytes # 2.1 10*3/uL (1.4-4.0); Lymphocytes % 14.6 % (21.3-54.2); Mean Corpuscular Hemoglobin 32 PG (27-34); Mean Corpuscular Volume 96.9 FL (87-102); Mean Platelet Volume 10.5 FL (9.6-12.0); Monocytes % 7.1 % (1.7-12.7); NRBC # 0.08 10*3/uL; Neutrophils # 7.7 10*3/uL (1.4-7.4); Neutrophils % 54.9 % (38.7-73.9); Red Blood Count 2.88 MC/CUMM (3.8-5.5); Red Cell Distribution Width 23.3 % (9.3-17.3); White Blood Count 14.1 T/CUMM (4-12)
[2018-03-20 04:34] LABS: Platelet Count 196 T/CUMM (130-400)
[2018-03-20 04:39] LABS: Band Neutrophils 3 % (0-10); Eosinophils 19 % (0-10); Hypochromasia 1+; Lymphocytes 6 % (20-55); Nucleated Red Blood Cells 2 (0-5); Platelet Estimate Adequate; Segmented Neutrophils 68 % (50-85); Total Cells Counted 100
[2018-03-20 04:40] LABS: Macrocytosis Slight; Ovalocytes Slight
[2018-03-20 04:41] LABS: Polychromasia Slight
[2018-03-20 04:52] LABS: Calcium 8.4 MG/DL (8.5-10.1); Osmolality,Calculated 334.5 MOS/KG (273-304)
[2018-03-20] MEDS: LORazepam 2 MG/1 ML VIAL IV PRN ×2 (05:30→22:54)
[2018-03-20] MEDS: PIPERACILLIN/TAZOBACTAM 3,375 MG in SODIUM CHLORIDE 0.9% 100 ML IV SCH ×2 (06:07→17:30)
[2018-03-20] MEDS ORDERED: SODIUM BICARB INJ 50 MEQ in DEXTROSE 5% 1,000 ML IV SCH (08:00)
[2018-03-20] MEDS ORDERED: THIAMINE 100 MG TABLET PO SCH (09:00)
[2018-03-20] MEDS: SODIUM BICARB IV SCH (09:08)
[2018-03-20] MEDS: DEXTROSE 5% IV SCH (09:08)
[2018-03-20] MEDS: NACL 0.45% IV SCH (09:08)
[2018-03-20] MEDS: FOLIC ACID 1 MG TABLET PO SCH (09:16)
[2018-03-20] MEDS: BACITRACIN OINT 0.9 GM PACK TOP SCH (09:16)
[2018-03-20] MEDS: LACTULOSE 20 GM/30 ML UDCUP PO SCH ×2 (09:16→22:53)
[2018-03-20] MEDS: ZINC OXIDE PASTE 113 GM TUBE TOP SCH ×2 (09:16→23:09)
[2018-03-20] MEDS: PANTOPRAZOLE 40 MG VIAL IV SCH (09:17)
[2018-03-20] MEDS: THIAMINE INJ 100 MG in SODIUM CHLORIDE 0.9% 100 ML IV SCH (10:35)
[2018-03-20] MEDS: DEXTROSE 5% 1,000 ML IV SCH ×3 (12:00→23:09)
[2018-03-20 15:10] LABS: Apearance,Urine CLEAR (Clear); Bilirubin,Urine Negative (Negative); Blood, Urine Small mg/dL (Negative); Glucose,Urine (UA) Negative (Negative); Ketones,Urine Negative (Negative); Mucus,Urine Occasional /LPF (Occasional); Nitrite,Urine Negative (Negative); Protein,Urine 100 MG/DL; RBC,Urine 1 /HPF (0-4); Squamous Epithelial Cell,Urine Occasional /HPF (0-10); Transitional Epi Cells,Urine Occasional /HPF (<1); Urine Color Yellow (Yellow); Urine Specific Gravity 1.013 (1.001-1.035); Urine Urobilinogen < 2.0 EU/DL (0.2-1.0); WBC,Urine 17 /HPF (0-6)
[2018-03-20] MEDS ORDERED: POTASSIUM CHLORIDE INJ 40 MEQ in DEXTROSE 5% 1,000 ML IV SCH (18:30)
[2018-03-20] MEDS: POTASSIUM CHLORIDE 20 MEQ/15 ML UDCUP PO PRN ×2 (20:00→22:52)
[2018-03-21] MEDS: POTASSIUM CHLORIDE 20 MEQ/15 ML UDCUP PO PRN ×4 (01:47→18:11)
[2018-03-21] MEDS ORDERED: diphenhydrAMINE CAP 25 MG CAPSULE PO PRN (03:00)
[2018-03-21] MEDS: PIPERACILLIN/TAZOBACTAM 3,375 MG in SODIUM CHLORIDE 0.9% 100 ML IV SCH (04:58)
[2018-03-21 05:07] LABS: Basophils # 0.1 10*3/uL (0.0-0.2); Basophils % 0.4 % (0.0-0.8); Eosinophils # 3.4 10*3/uL (0.0-0.87); Eosinophils % 24.7 % (0.00-10.9); Hematocrit 28.2 VOL% (35.7-47.0); Immature Granulocytes % 0.9 %; Immature Granulocytes Absolute 0.13 #; Lymphocytes # 2.3 10*3/uL (1.4-4.0); Lymphocytes % 16.4 % (21.3-54.2); Mean Corpuscular HGB Conc 31.9 GM/DL (32-36); Mean Corpuscular Hemoglobin 32 PG (27-34); Mean Corpuscular Volume 99.6 FL (87-102); Mean Platelet Volume 10.2 FL (9.6-12.0); Monocytes # 0.9 10*3/uL (0.11-0.8); Monocytes % 6.7 % (1.7-12.7); NRBC # 0.04 10*3/uL; Neutrophils # 7.1 10*3/uL (1.4-7.4); Neutrophils % 50.9 % (38.7-73.9); Platelet Count 143 T/CUMM (130-400); Red Blood Count 2.83 MC/CUMM (3.8-5.5); Red Cell Distribution Width 22.5 % (9.3-17.3); White Blood Count 13.9 T/CUMM (4-12)
[2018-03-21 05:19] LABS: Albumin 2.1 G/DL (3.4-5.0); Bilirubin,Total 2.6 MG/DL (0.2-1.0); Calcium 8.2 MG/DL (8.5-10.1); Osmolality,Calculated 311.9 MOS/KG (273-304); Potassium 3.6 MMOL/L (3.5-5.1); Total Protein 7.9 G/DL (6.4-8.3)
[2018-03-21 05:36] LABS: Band Neutrophils 3 % (0-10); Eosinophils 33 % (0-10); Lymphocytes 18 % (20-55); Macrocytosis 2+; Platelet Estimate Normal; Segmented Neutrophils 44 % (50-85); Total Cells Counted 100
[2018-03-21] MEDS: DEXTROSE 5% 1,000 ML IV SCH ×3 (07:02→18:10)
[2018-03-21 09:44] LABS: Albumin (SPE) 2.9 G/DL (3.2-5.3); Albumin (SPE) Rel % 36.7 %; Alpha 1 (SPE) 0.4 G/DL (0.1-0.4); Alpha 1 (SPE) Rel % 4.9 %; Alpha 2 (SPE) 0.5 G/DL (0.4-1.0); Alpha 2 (SPE) Rel % 6.7 %; Beta (SPE) 0.8 G/DL (0.5-1.1); Gamma (SPE) 3.3 G/DL (0.7-1.7); Gamma (SPE) Rel % 41.7 %
[2018-03-21] MEDS: LACTULOSE 20 GM/30 ML UDCUP PO SCH ×2 (09:50→21:22)
[2018-03-21] MEDS: PANTOPRAZOLE 40 MG TABLET PO SCH (09:51)
[2018-03-21] MEDS: BACITRACIN OINT 0.9 GM PACK TOP SCH (09:51)
[2018-03-21] MEDS: MULTIVITAMIN (CENTRUM) TABLET PO SCH (09:51)
[2018-03-21] MEDS: FOLIC ACID 1 MG TABLET PO SCH (09:51)
[2018-03-21] MEDS: THIAMINE 100 MG TABLET PO SCH (09:51)
[2018-03-21] MEDS: ZINC OXIDE PASTE 113 GM TUBE TOP SCH ×2 (09:52→21:22)
[2018-03-22] MEDS: DEXTROSE 5% 1,000 ML IV SCH ×2 (03:08→21:04)
[2018-03-22 03:42] LABS: Basophils # 0.1 10*3/uL (0.0-0.2); Basophils % 0.4 % (0.0-0.8); Eosinophils # 3.3 10*3/uL (0.0-0.87); Hematocrit 27.4 VOL% (35.7-47.0); Hemoglobin 8.7 GM/DL (12.0-16.0); Immature Granulocytes % 0.6 %; Immature Granulocytes Absolute 0.09 #; Lymphocytes # 2.7 10*3/uL (1.4-4.0); Lymphocytes % 17.6 % (21.3-54.2); Mean Corpuscular HGB Conc 31.8 GM/DL (32-36); Mean Corpuscular Hemoglobin 32 PG (27-34); Mean Corpuscular Volume 100.4 FL (87-102); Mean Platelet Volume 11.1 FL (9.6-12.0); Monocytes % 6.8 % (1.7-12.7); NRBC # 0.03 10*3/uL; Neutrophils % 52.6 % (38.7-73.9); Platelet Count 113 T/CUMM (130-400); Red Blood Count 2.73 MC/CUMM (3.8-5.5); Red Cell Distribution Width 21.3 % (9.3-17.3); White Blood Count 15.2 T/CUMM (4-12)
[2018-03-22 03:58] LABS: Calcium 8.3 MG/DL (8.5-10.1); Osmolality,Calculated 299.6 MOS/KG (273-304); Potassium 3.8 MMOL/L (3.5-5.1)
[2018-03-22 05:43] LABS: Eosinophils 12 % (0-10); Lymphocytes 9 % (20-55); Platelet Estimate Normal; Segmented Neutrophils 75 % (50-85); Total Cells Counted 100
[2018-03-22] MEDS: THIAMINE 100 MG TABLET PO SCH (09:50)
[2018-03-22] MEDS: FOLIC ACID 1 MG TABLET PO SCH (09:50)
[2018-03-22] MEDS: MULTIVITAMIN (CENTRUM) TABLET PO SCH (09:50)
[2018-03-22] MEDS: ZINC OXIDE PASTE 113 GM TUBE TOP SCH ×2 (09:51→21:02)
[2018-03-22] MEDS: PANTOPRAZOLE 40 MG TABLET PO SCH (09:51)
[2018-03-22] MEDS: BACITRACIN OINT 0.9 GM PACK TOP SCH (09:51)
[2018-03-22] MEDS: LACTULOSE 20 GM/30 ML UDCUP PO SCH ×2 (09:51→21:01)
[2018-03-23] MEDS: DEXTROSE 5% 1,000 ML IV SCH ×3 (05:04→22:26)
[2018-03-23 08:28] LABS: Basophils % 0.3 % (0.0-0.8); Eosinophils # 2.5 10*3/uL (0.0-0.87); Eosinophils % 20.8 % (0.00-10.9); Hemoglobin 9.7 GM/DL (12.0-16.0); Immature Granulocytes % 0.5 %; Immature Granulocytes Absolute 0.06 #; Lymphocytes # 1.9 10*3/uL (1.4-4.0); Lymphocytes % 15.4 % (21.3-54.2); Mean Corpuscular HGB Conc 32.3 GM/DL (32-36); Mean Corpuscular Hemoglobin 32 PG (27-34); Mean Corpuscular Volume 97.4 FL (87-102); Mean Platelet Volume 11.2 FL (9.6-12.0); Monocytes # 0.7 10*3/uL (0.11-0.8); Monocytes % 6.1 % (1.7-12.7); Neutrophils # 6.9 10*3/uL (1.4-7.4); Neutrophils % 56.9 % (38.7-73.9); Platelet Count 104 T/CUMM (130-400); Red Blood Count 3.08 MC/CUMM (3.8-5.5); Red Cell Distribution Width 19.9 % (9.3-17.3); White Blood Count 12.1 T/CUMM (4-12)
[2018-03-23 08:45] LABS: Calcium 8.4 MG/DL (8.5-10.1); Potassium 3.8 MMOL/L (3.5-5.1)
[2018-03-23 09:06] LABS: Band Neutrophils 1 % (0-10); Eosinophils 27 % (0-10); Hypochromasia 1+; Lymphocytes 8 % (20-55); Segmented Neutrophils 62 % (50-85); Total Cells Counted 100
[2018-03-23 09:07] LABS: Macrocytosis 1+; Platelet Estimate Adequate
[2018-03-23] MEDS: BACITRACIN OINT 0.9 GM PACK TOP SCH (09:58)
[2018-03-23] MEDS: LACTULOSE 20 GM/30 ML UDCUP PO SCH ×2 (09:58→21:05)
[2018-03-23] MEDS: THIAMINE 100 MG TABLET PO SCH (09:59)
[2018-03-23] MEDS: PANTOPRAZOLE 40 MG TABLET PO SCH (09:59)
[2018-03-23] MEDS: ZINC OXIDE PASTE 113 GM TUBE TOP SCH ×2 (09:59→21:07)
[2018-03-23] MEDS: FOLIC ACID 1 MG TABLET PO SCH (09:59)
[2018-03-23] MEDS: POTASSIUM CHLORIDE 20 MEQ TABLET PO PRN (09:59)
[2018-03-23] MEDS: MULTIVITAMIN (CENTRUM) TABLET PO SCH (09:59)
[2018-03-23] MEDS ORDERED: LORazepam 2 MG/1 ML VIAL IV PRN (10:59)
[2018-03-23] MEDS ORDERED: MAGNESIUM SULF RIDER 2 GM in PREMIX 1 EACH IV PRN (11:06)
[2018-03-23] MEDS ORDERED: MAGNESIUM SULF RIDER 4 GM in PREMIX 1 EACH IV PRN (11:06)
[2018-03-24 05:33] LABS: Basophils # 0.1 10*3/uL (0.0-0.2); Basophils % 0.5 % (0.0-0.8); Eosinophils # 2.1 10*3/uL (0.0-0.87); Eosinophils % 19.2 % (0.00-10.9); Hematocrit 29.3 VOL% (35.7-47.0); Hemoglobin 9.3 GM/DL (12.0-16.0); Immature Granulocytes % 0.5 %; Immature Granulocytes Absolute 0.06 #; Lymphocytes # 2.1 10*3/uL (1.4-4.0); Lymphocytes % 18.9 % (21.3-54.2); Mean Corpuscular HGB Conc 31.7 GM/DL (32-36); Mean Corpuscular Hemoglobin 32 PG (27-34); Mean Corpuscular Volume 100.3 FL (87-102); Mean Platelet Volume 10.9 FL (9.6-12.0); Monocytes # 0.9 10*3/uL (0.11-0.8); Monocytes % 7.8 % (1.7-12.7); Neutrophils # 5.9 10*3/uL (1.4-7.4); Neutrophils % 53.1 % (38.7-73.9); Platelet Count 87 T/CUMM (130-400); Red Blood Count 2.92 MC/CUMM (3.8-5.5); Red Cell Distribution Width 19.6 % (9.3-17.3); White Blood Count 11.2 T/CUMM (4-12)
[2018-03-24 05:58] LABS: Anisocytosis 1+; Band Neutrophils 4 % (0-10); Calcium 8.1 MG/DL (8.5-10.1); Eosinophils 22 % (0-10); Lymphocytes 11 % (20-55); Nucleated Red Blood Cells 1 (0-5); Osmolality,Calculated 291.8 MOS/KG (273-304); Platelet Estimate Adequate; Segmented Neutrophils 58 % (50-85); Total Cells Counted 100
[2018-03-24 05:59] LABS: Macrocytosis 1+
[2018-03-24] MEDS: DEXTROSE 5% 1,000 ML IV SCH (07:49)
[2018-03-24] MEDS: FOLIC ACID 1 MG TABLET PO SCH (09:09)
[2018-03-24] MEDS: MULTIVITAMIN (CENTRUM) TABLET PO SCH (09:10)
[2018-03-24] MEDS: LACTULOSE 20 GM/30 ML UDCUP PO SCH (09:10)
[2018-03-24] MEDS: THIAMINE 100 MG TABLET PO SCH (09:10)
[2018-03-24] MEDS: PANTOPRAZOLE 40 MG TABLET PO SCH (09:10)
[2018-03-24] MEDS: ZINC OXIDE PASTE 113 GM TUBE TOP SCH (09:15)
[2018-03-24] MEDS: BACITRACIN OINT 0.9 GM PACK TOP SCH (09:17)
[2018-03-24 11:20] VITALS: BP 136/80
== END 2018-03-24 12:38 | disposition home or self-care (01) | DRG 52 ==
LOC: EDBD → EDUNIT# → N.ED 10:03 → N.EDINP 10:46 → SUATTDRO 10:46 → N.EDINP 11:37 → N.5E 11:42 → N.CC 16:16 → N.3E 03-21 13:58
PROVIDERS: ADMIT Internal Medicine; ATTEND Internal Medicine Nephrology